=== PATIENT | male | born 1960 | race Caucasian/White ===

== ENCOUNTER 2021-02-03 15:22 | Outpatient (CLI) | payer OTHER, SELFPAY | END 2021-02-03 15:23 | disposition home or self-care (01) | LOC: ANHCOVIDVC 15:23 | PROVIDERS: PCP Urology | DX: Z23 Encounter for immunization (principal) | CPT/HCPCS: 0001A; 91300 ==

== ENCOUNTER 2021-02-24 15:32 | Outpatient (CLI) | payer OTHER, SELFPAY | END 2021-02-24 15:33 | disposition home or self-care (01) | LOC: ANHCOVIDVC 15:32 | PROVIDERS: PCP Urology | DX: Z23 Encounter for immunization (principal) | CPT/HCPCS: 0002A; 91300 ==

== ENCOUNTER 2021-11-18 12:23 | Outpatient (CLI) | payer OTHER, SELFPAY ==
--- NOTE | ~2021-11-18 | CT_ITS ---
EXAMINATION: CT lung screening DATE: 11/18/2021 12:43 INDICATION: Personal history of nicotine dependence. TECHNIQUE: Computed tomography (CT) of the chest was performed without intravenous contrast. The dose -length product was 602.70 mGy-cm. Automated exposure control and iterative reconstruction technique were employed. COMPARISON: None FINDINGS: Heart size is normal. No significant pleural or pericardial effusion. No thoracic lymphaden opathy. The upper abdomen is unremarkable. There is a 4 mm lingular nodule. There is calcified granul claudia right lower lung. There is a 3 mm left lower lobe nodule, image 97. No focal airspace consolidati on. No pneumothorax. No acute osseous abnormality. Mild thoracic spondylosis. IMPRESSION: 1. Lung-RADS category 2: Benign appearance or behavior. Continue annual screening with noncontrast lo w-dose chest CT in 12 months. Reviewed, dictated and finalized at location B. [employer] IMPRESSION: 1. Lung-RADS category 2: Benign appearance or behavior. Continue annual screeni ng with noncontrast low-dose chest CT in 12 months.
== END 2021-11-18 12:24 | disposition home or self-care (01) ==
PROVIDERS: PCP Family Medicine; Visit Provider Physician Assistant
DX: Z12.2 Encounter for screening for malignant neoplasm of respiratory organs (principal); Z87.891 Personal history of nicotine dependence
CPT/HCPCS: 71271

== ENCOUNTER 2021-12-12 03:44 | Day surgery (SDC) | payer OTHER, SELFPAY ==
[2021-11-28 14:16] VITALS: BMI 45.7
[2021-12-12 06:22] VITALS: BP 149/96; PULSE 83; RESP 18; TEMP 37; O2SAT 98; BMI 46.2
[2021-12-12] MEDS: LACTATED RINGERS 1,000 ML 150 ML IV CONT (06:25)
--- NOTE | 2021-12-12 06:55 | WPDANESEPPF ---
Anes - Initial Pre Proc Eval Procedure: Operation Date: 12/12/21 07:30 Proposed Procedures p Screening Colonoscopy - Maged Figueroa MD Date/Time: 12/12/21 06:55 Surgeon: Maged Figueroa MD Pre Op Diagnosis: hx of colon polyps Patient Data Age: 60 Gender: M Height: 1.73 m Weight: 138 kg Last Vital Signs Temp 37.0 C 12/12/21 06:22 Pulse 83 12/12/21 06:22 Resp 18 12/12/21 06:22 BP 149/96 H 12/12/21 06:22 Pulse Ox 98 12/12/21 06:22 Allergies Allergy/AdvReac Type Severity Reaction Status Date / Time No Known Allergies Allergy Verified 12/12/21 06:19 Home Medications Medication Instructions Recorded Confirmed Type No Home Medications 10/30/21 12/12/21 History Patient hx anesthesia problems: none Family hx anesthesia problems: none Results Review: All pre-operative results and documents have been reviewed as part of the pre-operative evaluation. [facility] Past Medical History Medical History Low testosterone level in male Osteoarthritis of right knee Surgical History Surgical History H/O arthroscopy of right knee Dr. Baca 2010 History of ankle surgery left, 1997 Family History Family History Mother Depression Heart disease Hypertension Parkinson disease Father Skin cancer Alzheimer's dementia Sibling Heart disease Hypertension Father Family history of dementia Mother Family history of coronary artery disease Social History Social History Smoking packs per day: 1 Smoking cigarettes per day: 20.0 Years smoked: 40 Smoking pack-years: 40.00 Smoking status: Current every day smoker Tobacco type: cigarettes Second hand tobacco smoke exposure: No Alcohol intake: current Drinks per week: 2 Alcohol use details: seldom; socially Substance use: current Substance use type: marijuana Last use: 11/25/21 Living arrangements: with family Gender identity (if verbalized by the patient): Male Spiritual care concerns: No Anes - Eval Final PreProcedure Day of Procedure 12/12/21 06:55 Patient weight: morbidly obese Heart: regular rate and rhythm Lungs: decreased breath sounds Airway: Mallampati scale class II Neurological: alert and oriented Last oral intake: >/= 8 hours ASA classification: III Emergent: no Anesthetic plan: proceed Anesthesia type and monitoring: general GIVS and standard monitoring Results Review: All pre-operative results and documents have been reviewed as part of the pre-operative evaluation. Informed Consent: The patient's anesthetic plan and its attendant risks and benefits were discussed with the patient/family/POA. Questions were solicited and answers provided to the satisfaction of the patient/family/POA.
[2021-12-12] MEDS: SIMETHICONE ORAL SUSPENSION 20 MG/0.3 ML 30 ML BOTTLE 0.6 ML IRRIGATION (07:40)
--- NOTE | 2021-12-12 07:50 | WPDGICN ---
Assessment and Plan Assessment and plan (1) History of colon polyps: Code(s): Z86.010 - Personal history of colonic polyps Status: Acute Assessment and Plan: Patient has a history of adenomatous colon polyps in the past. Plan is for surveillance colonoscopies at 3-5 year intervals in the future. (2) Family history of colonic polyps: Code(s): Z83.71 - Family history of colonic polyps Status: Acute GI Consult Note Consult date/time: 12/12/21 07:50 HPI: Charlie Mclean is a 60 year old male Presents for screening colonoscopy. Patient has a history of colon polyps on previous colonoscopies in 2019 in 2010. Patient reports that his current weight appetite and bowel movements are normal. He denies abdominal pain. He has had no bleeding. Family history is significant his son had colon polyps. Review of Systems Review of Systems: All systems reviewed & are unremarkable except as noted in HPI and below PMFSH Past Medical History Medical History Low testosterone level in male Osteoarthritis of right knee Surgical History Surgical History H/O arthroscopy of right knee Dr. Baca 2010 History of ankle surgery left, 1997 Family History Family History Mother Depression Heart disease Hypertension Parkinson disease Father Skin cancer Alzheimer's dementia Sibling Heart disease Hypertension Father Family history of dementia Mother Family history of coronary artery disease Social History Social History Smoking packs per day: 1 Smoking cigarettes per day: 20.0 Years smoked: 40 Smoking pack-years: 40.00 Smoking status: Current every day smoker Tobacco type: cigarettes Second hand tobacco smoke exposure: No Alcohol intake: current Drinks per week: 2 Alcohol use details: seldom; socially Substance use: current Substance use type: marijuana Last use: 11/25/21 Living arrangements: with family Gender identity (if verbalized by the patient): Male Spiritual care concerns: No Meds Home Medications and Allergies Home Medications Medication Instructions Recorded Confirmed Type No Home Medications 10/30/21 12/12/21 History Allergies Allergy/AdvReac Type Severity Reaction Status Date / Time No Known Allergies Allergy Verified 12/12/21 06:19 Vital Signs Vital Signs - 24 hr 12/12/21 06:22 Temperature 98.6 F Pulse Rate 83 Respiratory Rate 18 Blood Pressure 149/96 H Pulse Oximetry 98 Exam Narrative: Physical exam reveals patient to be alert. Vital signs stable. HEENT exam is unremarkable. Patient is anicteric. Lungs are clear to auscultation and percussion. Heart is without murmur or extra sounds. Abdominal exam is obese. Bowel sounds are present soft nontender with no organomegaly. Digital external rectal exam is normal.
[2021-12-12 07:54] VITALS: BP 148/86; PULSE 67; RESP 16; O2SAT 99
[2021-12-12 08:04] VITALS: BP 166/102; PULSE 66; RESP 16; O2SAT 99
[2021-12-12 08:14] VITALS: BP 171/106; PULSE 64; RESP 17; O2SAT 100
== END 2021-12-12 08:24 | disposition home or self-care (01) ==
PROVIDERS: PCP Family Medicine; Visit Provider Internal Medicine Gastroenterology
PROC: 0DJD8ZZ Inspection of Lower Intestinal Tract, Via Natural or Artificial Opening Endoscopic (ICD-10-PCS; CPT 45378; principal; 2021-12-12 07:30)
DX: Z12.11 Encounter for screening for malignant neoplasm of colon (principal); D12.3 Benign neoplasm of transverse colon; K57.30 Diverticulosis of large intestine without perforation or abscess without bleeding; K64.8 Other hemorrhoids; Z83.71 Family history of colonic polyps; F17.210 Nicotine dependence, cigarettes, uncomplicated; F12.90 Cannabis use, unspecified, uncomplicated; E66.01 Morbid (severe) obesity due to excess calories; Z68.42 Body mass index [BMI] 45.0-49.9, adult
CPT/HCPCS: 45385; 88305; J2704; J7120

== ENCOUNTER 2022-04-05 14:09 | Emergency (ER) | payer OTHER, SELFPAY ==
[2022-04-05 14:34] VITALS: BP 127/63; PULSE 71; RESP 16; TEMP 37.4; O2SAT 98
--- NOTE | 2022-04-05 15:44 | ED.DENTAL ---
HPI - Dental/Oral General Chief complaint: Dental/Oral Stated complaint: jaw swelling Time Seen by Provider: 04/05/22 15:45 Source: patient, RN notes reviewed and old records reviewed Mode of arrival: ambulatory Limitations: no limitations History of Present Illness HPI Narrative: 61-year-old male who presents to [facility] care with complaints of jaw swelling to the right jaw region which started this morning around 9 AM. Patient states he noticed some swelling in his right posterior jaw, feels like there is a knot there, with no redness or acute pain. Patient denies any dental pain or any known cavities, does have numerous fillings on right side of his lower and upper molars. Patient does have noted palpable swelling to the right posterior face no noted parotid lesion or evidence of salivary gland obstruction. Patient has not taken anything [id number] for his symptoms Onset (ago): hour(s) (at 0900 this morning) Treatment prior to arrival: none Related Data Allergies Allergy/AdvReac Type Severity Reaction Status Date / Time No Known Allergies Allergy Verified 04/05/22 14:47 Review of Systems Review of Systems: CONSTITUTIONAL: Denies fever, chills, or sweats. EYES: Denies visual changes, redness, or discharge. ENT: Denies rhinorrhea, congestion, sore throat, or otalgia. Positive for right posterior jaw swelling CARDIOVASCULAR: Denies chest pain, palpitations, or edema. RESPIRATORY: Denies cough or dyspnea. GASTROINTESTINAL: Denies abdominal pain, nausea, vomiting, or diarrhea. GENITOURINARY: Denies dysuria or hematuria. SKIN: Denies rash or itching. MUSCULOSKELETAL: reports history of back pain, joint pain, or myalgia. NEUROLOGIC: Denies headache, numbness, or weakness. PSYCHIATRIC: Denies anxiety or depression. All systems reviewed & are unremarkable except as noted in HPI and below PMFSH Past Medical History Medical History (Updated 04/07/22 @ 10:03 by Angela Roberts NP) Arthritis Low testosterone level in male Osteoarthritis of right knee Surgical History Surgical History H/O arthroscopy of right knee Dr. Baca 2010 History of ankle surgery left, 1997 Family History Family History Mother Depression Heart disease Hypertension Parkinson disease Father Skin cancer Alzheimer's dementia Sibling Heart disease Hypertension Father Family history of dementia Mother Family history of coronary artery disease Social History Social History (Updated 04/07/22 @ 10:05 by Angela Roberts NP) Smoking packs per day: 1 Smoking cigarettes per day: 20.0 Years smoked: 40 Smoking pack-years: 40.00 Smoking status: Current every day smoker Tobacco type: cigarettes Second hand tobacco smoke exposure: No Additional smoking assessment comments: reports that he has decreased his tobacco use Alcohol intake: current Drinks per week: 2 Alcohol use details: seldom; socially Substance use: current Substance use type: marijuana Last use: 11/25/21 Living arrangements: with family Gender identity (if verbalized by the patient): Male Spiritual care concerns: No Comments At time of signature, agree with nursing past medical, surgical, social and family history. There is no relevant family history pertinent to the presenting complaint Exam Narrative: GENERAL: Well-appearing, well-nourished, obese, and in no acute distress. HEAD: Normocephalic, atraumatic. EYES: PERRLA and EOMI. ENT: Nares clear, no rhinorrhea or epistaxis. Mucous membranes moist. TMs normal with good light reflex throat pink with no lesions or exudates no tonsillar swelling, positive for right posterior jaw and facial swelling with no acute pain, no noted fractures of teeth or evidence of dental fractures, no noted evidence of parotid gland swelling, no tenderness along jaw line or under jaw ma
== END 2022-04-05 15:55 | disposition home or self-care (01) ==
PROVIDERS: Emergency Provider Registered Nurse; PCP Family Medicine
DX: R22.0 Localized swelling, mass and lump, head (principal); F17.210 Nicotine dependence, cigarettes, uncomplicated; M19.90 Unspecified osteoarthritis, unspecified site; M17.11 Unilateral primary osteoarthritis, right knee
CPT/HCPCS: 99213; G0463

== ENCOUNTER 2022-06-27 19:24 | Emergency (ER) | payer OTHER, SELFPAY ==
--- NOTE | ~2022-06-27 | CT_ITS ---
EXAMINATION: CT abdomen pelvis wo con DATE: 06/27/2022 21:20 INDICATION: left flank pain radiating into groin, N/V TECHNIQUE: Computed tomography (CT) of the abdomen and pelvis was performed without intravenous contr ast. Automated exposure control and iterative reconstruction technique were employed. The dose-length product was 1539.31 mGy-cm. COMPARISON: None. FINDINGS: Lower thorax: Unremarkable Liver: Steatosis and hepatomegaly Biliary/Gallbladder: Gallbladder is normal. No bile duct dilation. Pancreas: No mass or duct dilation. Spleen: Normal. Adrenals:No mass. Kidneys: Moderate left pelviectasis and caliectasis, with moderate surrounding perinephric stranding. 10 mm left UPJ stone. No suspicious mass in either kidney. No right stone or hydronephrosis. GI tract: No small or large bowel dilation. Appendix not visualized. Mesentery/Peritoneum: No ascites, mass, or free air. Retroperitoneum: No mass. Pelvis: Bladder is mostly decompressed. Prostatic calcifications. No distal collecting system stones. . Soft Tissues: Soft tissues and body wall unremarkable. Bones: No acute osseous finding. IMPRESSION: 10 mm left UPJ stone causing moderate obstructive uropathy. Reviewed, dictated and finalized at location K.
[2022-06-27 19:42] VITALS: BP 149/62; PULSE 78; RESP 18; TEMP 36.7; O2SAT 99
--- NOTE | 2022-06-27 21:17 | ED.MALEGU ---
HPI - Male Genitourinary General Chief complaint: Urogenital-Male Stated complaint: flank pain Time Seen by Provider: 06/27/22 20:57 History of Present Illness HPI Narrative: 61-year-old male presents to the emergency room for evaluation of left flank pain. Patient states pain began earlier today and radiates into his left groin. Patient states within the last couple of hours he has become nauseated. No history of kidney stones. Patient states he is having trouble finding a comfortable position. Denies dysuria. Related Data Allergies Allergy/AdvReac Type Severity Reaction Status Date / Time No Known Allergies Allergy Verified 04/05/22 14:47 Review of Systems Review of Systems: CONSTITUTIONAL: Denies fever, chills, or sweats. EYES: Denies visual changes, redness, or discharge. ENT: Denies rhinorrhea, congestion, sore throat, or otalgia. CARDIOVASCULAR: Denies chest pain, palpitations, or edema. RESPIRATORY: Denies cough or dyspnea. GASTROINTESTINAL: Reports left flank pain GENITOURINARY: Denies dysuria or hematuria. SKIN: Denies rash or itching. MUSCULOSKELETAL: Denies back pain, joint pain, or myalgia. NEUROLOGIC: Denies headache, numbness, dizziness, or weakness. PSYCHIATRIC: Denies anxiety or depression. [facility] Past Medical History Medical History Arthritis Low testosterone level in male Osteoarthritis of right knee Surgical History Surgical History H/O arthroscopy of right knee Dr. Baca 2010 History of ankle surgery left, 1997 Family History Family History Mother Depression Heart disease Hypertension Parkinson disease Father Skin cancer Alzheimer's dementia Sibling Heart disease Hypertension Father Family history of dementia Mother Family history of coronary artery disease Social History Social History Smoking packs per day: 1 Smoking cigarettes per day: 20.0 Years smoked: 40 Smoking pack-years: 40.00 Smoking status: Current every day smoker Tobacco type: cigarettes Second hand tobacco smoke exposure: No Additional smoking assessment comments: reports that he has decreased his tobacco use Alcohol intake: current Drinks per week: 2 Alcohol use details: seldom; socially Substance use: current Substance use type: marijuana Last use: 11/25/21 Gender identity (if verbalized by the patient): Male Spiritual care concerns: No Exam Narrative: GENERAL: Well-appearing, well-nourished, no physical limitations, and in no acute distress. HEAD: Normocephalic, atraumatic. EYES: Conjunctivae normal, PERRLA and EOMI. CHEST: Clear to auscultation. No respiratory distress. No wheezes rales or rhonchi. No tenderness. HEART: Regular rate and rhythm. No murmur heard. Normal peripheral pulses. ABDOMEN: Soft, left lower quadrant tenderness, nondistended, normal active bowel sounds. BACK: No CVA tenderness; lower left lumbar tenderness in the paraspinal muscles EXTREMITIES: Normal range of motion. No edema. No clubbing or cyanosis SKIN: Warm, dry, no rash. No noted wounds NEURO: No focal deficits. Alert and oriented x3. MAEW. CN's II-XI intact bilaterally, normal gait PSYCH: Cooperative. Normal mood and affect. Course Vital Signs Vital signs: Vital Signs Temperature 36.7 C 06/27/22 19:42 Pulse Rate 78 06/27/22 19:42 Respiratory Rate 18 06/27/22 19:42 Blood Pressure 149/62 H 06/27/22 19:42 Pulse Oximetry 99 06/27/22 19:42 Oxygen Delivery Room Air 06/27/22 19:42 Temperature 36.7 C 06/27/22 19:42 Pulse Rate 78 06/27/22 19:42 Respiratory Rate 18 06/27/22 19:42 Blood Pressure 149/62 H 06/27/22 19:42 Pulse Oximetry 99 06/27/22 19:42 Oxygen Delivery Room Air 06/27/22 19:42 MDM - Male Genitouri
[2022-06-27] MEDS: KETOROLAC 30 MG/ML VIAL (*BKC) IV PUSH (21:47)
[2022-06-27] MEDS: SODIUM CHLORIDE 0.9% IV 1,000 ML 999 ML IV CONT (21:49)
[2022-06-27] MEDS: ONDANSETRON INJ 4 MG/2 ML VIAL IV PUSH (21:49)
[2022-06-27 22:07] LABS: Basophils Absolute Auto 0.1 K/mm3 (0.0-0.1); Basophils Percent Auto 0.5 % (0.2-1.2); Eosinophils Absolute Auto 0.1 K/mm3 (0-0.3); Eosinophils Percent Auto 0.5 % (0-4.4); Hematocrit 47.1 % (42.0-52.0); Hemoglobin 15.4 g/dL (14.0-18.0); Immature Granulocyte Absolute 0.07 K/mm3 (0.00-0.031); Immature Granulocyte Percent A 0.5 % (0-0.5); Lymphocytes Absolute Auto 1.42 K/mm3 (0.9-3.2); Lymphocytes Percent Auto 9.6 % (18.3-44.2); Mean Corpuscular HGB Conc 32.7 g/dl (32-36); Mean Corpuscular Hemoglobin 28.5 pg (26-34); Mean Corpuscular Volume 87.1 fl (80-100); Mean Platelet Volume 10.8 fl (7.4-10.4); Monocytes Absolute Auto 1.2 K/mm3 (0.1-0.6); Monocytes Percent Auto 8.1 % (2.6-8.5); Neutrophils Absolute Auto 11.9 K/mm3 (1.3-6.7); Neutrophils Percent Auto 80.8 % (45.5-73.1); Platelet Count Result 275 k/mm3 (150-375); Red Blood Count 5.41 M/mm3 (4.6-6.20); Red Cell Distribution Width 13.7 % (11.5-14.5); White Blood Count 14.8 K/mm3 (4.5-10.0)
[2022-06-27 22:08] LABS: Appearance Urine Clear (Clear); Bilirubin Urine Negative (Negative); Blood Urine 1+ (Negative); Color Urine Yellow (Yellow); Glucose Urine UA Negative (Negative); Ketones Urine Negative (Negative); Leukocyte Esterase Ur Negative LEU/UL (Negative); Nitrate Urine Negative (Negative); Protein Urine Negative (Negative); Specific Grav Ur 1.025 (1.001-1.035); Urobilinogen Urine 0.2 mg/dL (<2.0); pH Urine 5.5 (5.0-9.0)
[2022-06-27 22:10] LABS: Alanine Aminotransferase 30 U/L (6-50); Albumin Level 4.5 g/dL (3.5-5.1); Alkaline Phosphatase 67 U/L (38-126); Anion Gap 10 mmol/L (8-16); Aspartate Amino Transferase 30 U/L (17-59); Bilirubin,Total 0.4 mg/dL (0.2-1.3); Blood Urea Nitrogen 22 mg/dL (9-20); Calcium 9.7 mg/dL (8.4-10.2); Carbon Dioxide 24 mmol/L (22-30); Chloride 107 mmol/L (98-107); Estimated CRCL calculation 67 ml/min; Estimated Glomerular Filt Rate 51; Glucose 155 mg/dL (65-110); Potassium 4.2 mmol/L (3.4-5.0); Sodium 141 mmol/L (137-145)
[2022-06-27 22:17] LABS: Add Urine Microscopic? YES
[2022-06-27 22:19] LABS: WBC Urine None seen /hpf (0-3)
[2022-06-27 22:49] VITALS: BP 154/75; PULSE 74; RESP 18; TEMP 36.7; O2SAT 95
== END 2022-06-27 22:50 | disposition home or self-care (01) ==
PROVIDERS: Emergency Provider Nurse Practitioner Family; PCP Family Medicine
DX: N20.0 Calculus of kidney (principal); M19.90 Unspecified osteoarthritis, unspecified site; M17.11 Unilateral primary osteoarthritis, right knee; F17.210 Nicotine dependence, cigarettes, uncomplicated
CPT/HCPCS: 36415; 74176; 80053; 81001; 85025; 96361; 96374; 96375; 99284; J1885; J2405; J7030

== ENCOUNTER 2022-07-01 11:27 | Outpatient (CLI) | payer OTHER, SELFPAY ==
--- NOTE | ~2022-07-01 | XR_ITS ---
EXAM: XR abdomen/kub 1V DATE: 07/01/2022 11:46 HISTORY: LEFT URETERAL STONE FOLLOW UP . COMPARISON: CT abdomen and pelvis 06/27/2022. FINDINGS: Clear lung bases. Normal bowel gas pattern. No organomegaly. 9 mm left UPJ calcification. Pelvic phleboliths. Regional bones and soft tissues normal for age. IMPRESSION: Stable left UPJ stone. Reviewed, dictated and finalized at location K. IMPRESSION: Stable left UPJ stone.
== END 2022-07-01 11:28 | disposition home or self-care (01) ==
PROVIDERS: PCP Family Medicine; Visit Provider Urology
DX: N20.1 Calculus of ureter (principal)
CPT/HCPCS: 74018

== ENCOUNTER 2022-07-03 02:09 | Day surgery (SDC) | payer OTHER, SELFPAY ==
[2022-07-02 11:05] VITALS: BMI 45.7
--- NOTE | 2022-07-02 11:16 | PC.NURSE ---
Report to the Outpatient Waiting Room, entrance under the green pavilion located off [facility], at time __0730 on date __07/03/22 . OR Time: __929 . Time changes happen often and if your time is changed the preop area will call you the afternoon before. - You and your visitor will be asked to self-screen and do not enter if you have any COVID symptoms. - Only one visitor and NO children visitors are allowed at this time. - The patient visitor is requested to leave or wait in car when not with patient due to restrictions. - A mask is required within the hospital. Patients may have clear liquids (water, carbonated beverages, clear teas, apple juice) until 3 hours prior to surgery (0630 AM) with a maximum of 20 ounces. - No food from midnight until time of surgery - Infants may have breast milk until 4 hours before surgery, infant formula 6 hours prior to surgery. - Children will be allowed to drink immediately following surgery. If applicable, please bring a bottle or sippy cup to assist with drinking. Juice, water, soda, and popsicles are readily available. For infants on formula, please bring formula the day of surgery. Pacifiers are allowed. Take the following medications with a SIP of water the morning of surgery: PAIN PILL IF NEEDED Medications to discontinue per physician N/A Date to take last dose Please no make-up, nail welsh, hairspray, perfume, deodorant, or body powder the day of surgery. No jewelry (including any body piercings) or valuables the day of surgery, leave them at home. Please take a shower or bath the night before, or the morning of, surgery with an antibacterial soap. Wear comfortable, loose fitting clothing. Children are encouraged to wear pajamas. - Jewelry must be removed prior to entering the operating room. Rings and piercings that are not removed may be cut off. - The hospital will not accept responsibility for valuables. - Please leave all valuables, including medications, at home the day of surgery. If you are going home after surgery, a licensed powder truck driver must drive you home. - NO public transportation without another adult. - We recommend that an adult stay with you for 24 hours following discharge. - We also recommend that you do not drive, make important decision, drink alcoholic beverages, or take any drugs that were not prescribed by your health care provider for at least 24 hours after your discharge time. For Pediatric surgeries, we recommend two adults accompany the child home (only one inside the building at this time). Follow any additional instructions given to you from your surgeon. If you or anyone in your household have experienced Covid symptoms in the past week, please notify your surgeon or the nurse liaison at the phone number below for possible testing. Telephone instructions given to ___PT and asked if any additional questions and then verbalized understanding. Patient advised to call surgeon office or pre surgery nurse liaison [phone] if any additional questions.
--- NOTE | 2022-07-02 11:50 | PM.HPGS ---
History of Present Illness History of Present Illness Consent: Risks, benefits, and alternatives have been discussed and questions answered. Patient agrees to proceed with procedure. Chief complaint: left ureteral stone Narrative: Charlie Mclean is a 61 year old male who sees Dr. Hall on a regular basis for erectile dysfunction and hypogonadism. Recently developed left flank pain imaging demonstrated an obstructing 10 mm left proximal ureteral calculus. After discussions including endoscopic extraction verses ESWL he has elected for the latter. He is aware of the risk of this procedure including, but not limited to, adverse cardiopulmonary events, persistent stone fragments that may require additional intervention, perinephric hematoma and hematuria. Review of Systems Cardiovascular: Cardiovascular: Denies chest pain, Denies lightheadedness, Denies palpitations and Denies dyspnea Respiratory: Respiratory: Denies dyspnea Gastrointestinal: Gastrointestinal: Denies diarrhea, Denies nausea and Denies vomiting Genitourinary: Genitourinary: Denies hematuria and Denies dysuria Endocrine: Endocrine: Denies palpitations PMFSH Past Medical History Medical History Arthritis Low testosterone level in male Osteoarthritis of right knee Surgical History Surgical History H/O arthroscopy of right knee Dr. Baca 2010 History of ankle surgery left, 1997 Family History Family History Mother Depression Heart disease Hypertension Parkinson disease Father Skin cancer Alzheimer's dementia Sibling Heart disease Hypertension Father Family history of dementia Mother Family history of coronary artery disease Social History Social History Smoking packs per day: 1 Smoking cigarettes per day: 20.0 Years smoked: 40 Smoking pack-years: 40.00 Smoking status: Current every day smoker Tobacco type: cigarettes Second hand tobacco smoke exposure: Yes Additional smoking assessment comments: reports that he has decreased his tobacco use Alcohol intake: current Drinks per week: 2 Alcohol use details: seldom; socially Substance use: current Substance use type: marijuana Other substance usage details: RECEARATIONAL 1-2X MONTH Last use: END May Living arrangements: with family Gender identity (if verbalized by the patient): Male Spiritual care concerns: No Meds Home Medications and Allergies Home Medications Medication Instructions Recorded Confirmed Type hydrocodone 5 mg-acetaminophen 325 1 tablet PO Q8H PRN pain #20 tabs 06/27/22 07/02/22 Rx mg tablet ondansetron 4 mg disintegrating 4 mg PO Q8H PRN Nausea 07/02/22 07/02/22 History tablet tamsulosin 0.4 mg capsule (Flomax) 0.4 mg PO HS 07/02/22 07/02/22 History Allergies Allergy/AdvReac Type Severity Reaction Status Date / Time No Known Allergies Allergy Verified 07/02/22 11:02 Exam Const: General: no acute distress Resp: Effort & Inspection: normal respiratory effort GI: Inspection: non-distended GI Palp: No abdominal tenderness and No Guarding due to palpation present (GI) Auscultation: normal bowel sounds
--- NOTE | 2022-07-02 11:55 | PM.HPGS ---
History of Present Illness History of Present Illness Consent: Risks, benefits, and alternatives have been discussed and questions answered. Patient agrees to proceed with procedure. Chief complaint: left ureteral stone Narrative: Charlie Mclean is a 61 year old male Who is followed by Dr. Hall for hypogonadism and erectile dysfunction. He recently developed left flank pain imaging demonstrates the in obstructing 10 mm left proximal ureteral stone. After discussion of options he elects to proceed with cystoscopy with possible left ureteral stent placement and right ESWL. He is aware of the risk of this procedure including, but not limited to, adverse cardiopulmonary events, persistent stone fragments that may require additional intervention, perinephric hematoma and hematuria. Review of Systems Cardiovascular: Cardiovascular: Denies chest pain, Denies lightheadedness, Denies palpitations and Denies dyspnea Respiratory: Respiratory: Denies dyspnea Gastrointestinal: Gastrointestinal: Denies diarrhea, Denies nausea and Denies vomiting Genitourinary: Genitourinary: Denies hematuria and Denies dysuria Endocrine: Endocrine: Denies palpitations [facility], [facility] Past Medical History Medical History Arthritis Low testosterone level in male Osteoarthritis of right knee Surgical History Surgical History H/O arthroscopy of right knee Dr. Baca 2010 History of ankle surgery left, 1997 Family History Family History Mother Depression Heart disease Hypertension Parkinson disease Father Skin cancer Alzheimer's dementia Sibling Heart disease Hypertension Father Family history of dementia Mother Family history of coronary artery disease Social History Social History Smoking packs per day: 1 Smoking cigarettes per day: 20.0 Years smoked: 40 Smoking pack-years: 40.00 Smoking status: Current every day smoker Tobacco type: cigarettes Second hand tobacco smoke exposure: Yes Additional smoking assessment comments: reports that he has decreased his tobacco use Alcohol intake: current Drinks per week: 2 Alcohol use details: seldom; socially Substance use: current Substance use type: marijuana Other substance usage details: RECEARATIONAL 1-2X MONTH Last use: END May Living arrangements: with family Gender identity (if verbalized by the patient): Male Spiritual care concerns: No Meds Home Medications and Allergies Home Medications Medication Instructions Recorded Confirmed Type hydrocodone 5 mg-acetaminophen 325 1 tablet PO Q8H PRN pain #20 tabs 06/27/22 07/02/22 Rx mg tablet ondansetron 4 mg disintegrating 4 mg PO Q8H PRN Nausea 07/02/22 07/02/22 History tablet tamsulosin 0.4 mg capsule (Flomax) 0.4 mg PO HS 07/02/22 07/02/22 History Allergies Allergy/AdvReac Type Severity Reaction Status Date / Time No Known Allergies Allergy Verified 07/02/22 11:02 Exam Const: General: no acute distress Resp: Effort & Inspection: normal respiratory effort GI: Inspection: non-distended GI Palp: No abdominal tenderness and No Guarding due to palpation present (GI) Auscultation: normal bowel sounds Assessment and Plan Assessment and plan (1) Left ureteral stone: Code(s): N20.1 - Calculus of ureter Status: Acute Assessment and Plan: Left ESWL with possible cystoscopy in left ureteral stent placement
[2022-07-03] VITALS (8 sets, daily range): BP systolic 112–152; BP diastolic 59–77; PULSE 68–78; RESP 14–18; TEMP 36.3–37.5; O2SAT 94–99
--- NOTE | ~2022-07-03 | XR_ITS ---
EXAMINATION: XR abdomen/kub 1V DATE: 07/03/2022 07:30 INDICATION: Kidney stone. TECHNIQUE: A supine view of the abdomen on 2 radiographs was obtained. COMPARISON: CT abdomen and pelvis 06/27/2022 FINDINGS: There are no dilated loops of bowel. There is a 10 x 7 mm stone in proximal left ureter. Th ere is a phlebolith in left pelvis. IMPRESSION: 1. Stone in proximal left ureter. Reviewed, dictated and finalized at location A.
--- NOTE | 2022-07-03 07:03 | WPDHPUPDATE1 ---
History and Physical Update Update Date/Time: 07/03/22 07:03 History and Physical has been reviewed, including an updated exam of the patient. There are NO changes in the patient's condition. Risks, benefits, and alternatives have been discussed and questions answered. Patient agrees to proceed with procedure.
[2022-07-03] MEDS: LACTATED RINGERS 1,000 ML 30 ML IV CONT (08:00)
[2022-07-03 08:21] LABS: Prothrombin Time 13.1 Seconds (11.1-14.7)
[2022-07-03 08:22] LABS: Partial Thromboplastin Time 28.9 SECONDS (22.3-36.8)
--- NOTE | 2022-07-03 08:33 | WPDANESEPPF ---
Anes - Initial Pre Proc Eval Procedure: Operation Date: 07/03/22 09:30 Proposed Procedures p Left Ureteral Extracorporeal Shock Wave Lithotripsy, - Chuck Acevedo MD s Possible Cystoscopy, Possible Left Stent Placement - Chuck Acevedo MD Date/Time: 07/03/22 08:33 Surgeon: Chuck Acevedo MD Pre Op Diagnosis: left ureteral stone Patient Data Age: 61 Gender: M Height: 1.73 m Weight: 140.7 kg Last Vital Signs Temp 37.5 C 07/03/22 08:02 Pulse 78 07/03/22 08:02 Resp 16 07/03/22 08:02 BP 152/77 H 07/03/22 08:02 Pulse Ox 99 07/03/22 08:02 O2 Del Method Room Air 07/03/22 08:02 Allergies Allergy/AdvReac Type Severity Reaction Status Date / Time No Known Allergies Allergy Verified 07/03/22 07:35 Home Medications Medication Instructions Recorded Confirmed Type hydrocodone 5 mg-acetaminophen 325 1 tablet PO Q8H PRN pain #20 tabs 06/27/22 07/03/22 Rx mg tablet ondansetron 4 mg disintegrating 4 mg PO Q8H PRN Nausea 07/02/22 07/03/22 History tablet tamsulosin 0.4 mg capsule (Flomax) 0.4 mg PO HS 07/02/22 07/03/22 History Laboratory Tests 07/03/22 07:56 PT 13.1 Seconds Seconds (11.1-14.7) INR 1.0 APTT 28.9 SECONDS SECONDS (22.3-36.8) Patient hx anesthesia problems: none Family hx anesthesia problems: none Results Review: All pre-operative results and documents have been reviewed as part of the pre-operative evaluation. [facility] Past Medical History Medical History (Updated 07/03/22 @ 08:33 by Zafar Mendoza MD) Arthritis Low testosterone level in male Morbid obesity Osteoarthritis of right knee Surgical History Surgical History H/O arthroscopy of right knee Dr. Baca 2010 History of ankle surgery left, 1997 Family History Family History Mother Depression Heart disease Hypertension Parkinson disease Father Skin cancer Alzheimer's dementia Sibling Heart disease Hypertension Father Family history of dementia Mother Family history of coronary artery disease Social History Social History Smoking packs per day: 1 Smoking cigarettes per day: 20.0 Years smoked: 40 Smoking pack-years: 40.00 Smoking status: Current every day smoker Tobacco type: cigarettes Second hand tobacco smoke exposure: Yes Additional smoking assessment comments: reports that he has decreased his tobacco use Alcohol intake: current Drinks per week: 2 Alcohol use details: seldom; socially Substance use: current Substance use type: marijuana Other substance usage details: RECEARATIONAL 1-2X MONTH Last use: END May Living arrangements: with family Gender identity (if verbalized by the patient): Male Spiritual care concerns: No Anes - Eval Final PreProcedure Day of Procedure 07/03/22 08:33 Patient weight: morbidly obese Heart: regular rate and rhythm Lungs: clear to auscultation Airway: Mallampati scale class II Neurological: alert and oriented Last oral intake: >/= 8 hours ASA classification: III Emergent: no Anesthetic plan: proceed Anesthesia type and monitoring: general LMA and standard monitoring Results Review: All pre-operative results and documents have been reviewed as part of the pre-operative evaluation. Informed Consent: The patient's anesthetic plan and its attendant risks and benefits were discussed with the patient/family/POA. Questions were solicited and answers provided to the satisfaction of the patient/family/POA.
--- NOTE | 2022-07-03 09:27 | SUR.PREOP ---
Discussed delay with patient and . Voiced understanding.
[2022-07-03] MEDS: ceFAZolin 3 GM/D5W 100 ML 100 ML IVPB (09:52)
--- NOTE | 2022-07-03 10:26 | W.PM.PROC2 ---
Procedure Note - Detailed Date of Procedure 07/03/22 Pre-op Diagnosis Left ureteral stone Post-op Diagnosis Same Procedure Performed Cystoscopy, left ureteral stent placement and left ESWL Surgeon Chuck Acevedo MD Description of Procedure The patient was brought to the operative suite where he was placed in the supine position on the Dornier lithotripter table. Flexible cystoscopy was undertaken with a 16F flexible cystoscopy. There were no urethral strictures. The prostatic urethra estimated length was 2.0cm. There was no obstruction of the prostatic urethra with median lobe enlargement. The bladder mucosa was normal and there was a single, orthotopic ureteral orifice bilaterally. A 0.035 glidewire was advanced into the left renal pelvis under fluoroscopy. A 4.8F J-J ureteral stent was positioned with the proximal coil in the renal pelvis and the distal coil in the bladder. The patient was then repositioned in the supine position with the focal point of the lithotriptor on a 9-10mm left UPJ calculus. A total of 2500 shocks were delivered at a power setting of 4. There appeared to be good fragmentation of the stone. The patient tolerated the procedure well and was taken to the recovery room in good condition. Drains Yes Packing No Pathology Yes Complications No immediate complications Condition Stable
== END 2022-07-03 12:35 | disposition home or self-care (01) ==
PROVIDERS: PCP Family Medicine; Visit Provider Urology
PROC: (CPT 50590; principal; 2022-07-03 09:30)
PROC: (CPT 52352; 2022-07-03 09:30)
DX: N20.1 Calculus of ureter (principal); R10.9 Unspecified abdominal pain; M19.90 Unspecified osteoarthritis, unspecified site; F17.210 Nicotine dependence, cigarettes, uncomplicated; F12.90 Cannabis use, unspecified, uncomplicated; E66.01 Morbid (severe) obesity due to excess calories; Z68.42 Body mass index [BMI] 45.0-49.9, adult
CPT/HCPCS: 52332; 50590; 36415; 74018; 85610; 85730; A9270; C1769; C2617; J0690; J1100; J2250; J2405; J2704; J3010; J7120

== ENCOUNTER 2022-07-10 07:23 | Outpatient (CLI) | payer OTHER, SELFPAY ==
--- NOTE | ~2022-07-10 | XR_ITS ---
EXAMINATION: XR abdomen/kub 1V INDICATION: Left ureteral stone one week post lithotripsy TECHNIQUE: Supine views of the abdomen were obtained on 2 radiographs. COMPARISON: 07/03/2022 FINDINGS: A left internal ureteral stent is in expected position. Fragments of the previously describ ed left proximal ureteral stone are now present in the left kidney lower pole. No stone fragments are identified along the internal ureteral stent. There is a phlebolith of the left pelvis. The bowel ga s pattern is normal. IMPRESSION: 1. Left internal ureteral stent in expected position. Stone fragments from lithotripsy now present in the left kidney lower pole. Reviewed, dictated and finalized at location B. IMPRESSION: 1. Left internal ureteral stent in expected position. Stone fragments from lith otripsy now present in the left kidney lower pole.
== END 2022-07-10 07:24 | disposition home or self-care (01) ==
PROVIDERS: PCP Family Medicine; Visit Provider Urology
DX: N20.1 Calculus of ureter (principal)
CPT/HCPCS: 74018

== ENCOUNTER 2022-07-22 08:44 | Outpatient (CLI) | payer OTHER, SELFPAY ==
[2022-07-22 09:43] LABS: Prothrombin Time 12.7 Seconds (11.1-14.7)
[2022-07-22 09:45] LABS: Partial Thromboplastin Time 30.2 SECONDS (22.3-36.8)
== END 2022-07-22 08:45 | disposition home or self-care (01) ==
LOC: ANHSURGERY 08:46
PROVIDERS: PCP Family Medicine; Visit Provider Urology
DX: Z01.812 Encounter for preprocedural laboratory examination (principal); N20.1 Calculus of ureter
CPT/HCPCS: 36415; 85610; 85730

== ENCOUNTER 2022-07-24 00:55 | Day surgery (SDC) | payer OTHER, SELFPAY ==
[2022-07-17 12:11] VITALS: BMI 47.1
--- NOTE | 2022-07-17 12:19 | PC.NURSE ---
Report to the Outpatient Waiting Room, entrance under the green pavilion located off [facility], at time 6:30 on date 07/24/22. OR Time: 8:30. Time changes happen often and if your time is changed the preop area will call you the afternoon before. - You and your visitor will be asked to self-screen and do not enter if you have any COVID symptoms. - Only one visitor and NO children visitors are allowed at this time. - The patient visitor is requested to leave or wait in car when not with patient due to restrictions. - A mask is required within the hospital. Patients may have clear liquids (water, carbonated beverages, clear teas, apple juice) until 3 hours prior to surgery (5:30) with a maximum of 20 ounces. - No food from midnight until time of surgery Take the following medications with a SIP of water the morning of surgery: N/A Medications to discontinue per physician: N/A Date to take last dose: N/A Please no make-up, nail st helenian, hairspray, perfume, deodorant, or body powder the day of surgery. No jewelry (including any body piercings) or valuables the day of surgery, leave them at home. Please take a shower or bath the night before, or the morning of, surgery with an antibacterial soap. Wear comfortable, loose fitting clothing. - Jewelry must be removed prior to entering the operating room. Rings and piercings that are not removed may be cut off. - The hospital will not accept responsibility for valuables. - Please leave all valuables, including medications, at home the day of surgery. If you are going home after surgery, a licensed pick up driver must drive you home. - NO public transportation without another adult. - We recommend that an adult stay with you for 24 hours following discharge. - We also recommend that you do not drive, make important decision, drink alcoholic beverages, or take any drugs that were not prescribed by your health care provider for at least 24 hours after your discharge time. Follow any additional instructions given to you from your surgeon. If you or anyone in your household have experienced Covid symptoms in the past week, please notify your surgeon or the nurse liaison at the phone number below for possible testing. Telephone instructions given to PT - GREG GUIDO and asked if any additional questions and then verbalized understanding. Patient advised to call surgeon office or pre surgery nurse liaison [phone] if any additional questions.
--- NOTE | 2022-07-23 15:29 | WPDANESEPPF ---
Anes - Initial Pre Proc Eval Procedure: Operation Date: 07/24/22 08:30 Proposed Procedures p Left Extracorporeal Shock Wave Lithotripsy - Amor Cardoso MD Date/Time: 07/23/22 15:29 Surgeon: Amor Cardoso MD Pre Op Diagnosis: Lt Ureteral Stone Patient Data Age: 61 Gender: M Height: 1.73 m Weight: 140.7 kg Allergies Allergy/AdvReac Type Severity Reaction Status Date / Time No Known Allergies Allergy Verified 07/17/22 12:11 Home Medications Medication Instructions Recorded Confirmed Type tamsulosin 0.4 mg capsule (Flomax) 0.4 mg PO HS 07/02/22 07/17/22 History Patient hx anesthesia problems: none Family hx anesthesia problems: none Results Review: All pre-operative results and documents have been reviewed as part of the pre-operative evaluation. [facility] Past Medical History Medical History (Updated 07/03/22 @ 08:33 by Zafar Mendoza MD) Arthritis Low testosterone level in male Morbid obesity Osteoarthritis of right knee Surgical History Surgical History H/O arthroscopy of right knee Dr. Baca 2010 History of ankle surgery left, 1997 Family History Family History Mother Depression Heart disease Hypertension Parkinson disease Father Skin cancer Alzheimer's dementia Sibling Heart disease Hypertension Father Family history of dementia Mother Family history of coronary artery disease Social History Social History Smoking packs per day: 1 Smoking cigarettes per day: 20.0 Years smoked: 40 Smoking pack-years: 40.00 Smoking status: Current every day smoker Tobacco type: cigarettes Second hand tobacco smoke exposure: Yes Additional smoking assessment comments: reports that he has decreased his tobacco use Alcohol intake: current Drinks per week: 2 Alcohol use details: seldom; socially Substance use: current Substance use type: marijuana Other substance usage details: RECEARATIONAL 1-2X MONTH Last use: END May Living arrangements: with family Gender identity (if verbalized by the patient): Male Spiritual care concerns: No Anes - Eval Final PreProcedure Day of Procedure 07/23/22 15:29 Patient weight: morbidly obese Heart: regular rate and rhythm Lungs: clear to auscultation Airway: Mallampati scale class II Neurological: alert and oriented Last oral intake: >/= 8 hours ASA classification: III Emergent: no Anesthetic plan: proceed Anesthesia type and monitoring: general LMA and standard monitoring Results Review: All pre-operative results and documents have been reviewed as part of the pre-operative evaluation. Informed Consent: The patient's anesthetic plan and its attendant risks and benefits were discussed with the patient/family/POA. Questions were solicited and answers provided to the satisfaction of the patient/family/POA.
[2022-07-24] VITALS (7 sets, daily range): BP systolic 105–135; BP diastolic 66–88; PULSE 70–87; RESP 10–18; TEMP 36.4–37.1; O2SAT 97–100
--- NOTE | ~2022-07-24 | XR_ITS ---
XR abdomen/kub 1V 07/24/2022 07:01 Indication: Lithotripsy. Renal stones. Procedure: KUB Comparison: 07/10/2022 Findings: There are clustered stones in the lower pole of the left kidney. Left internal ureteral daniel nt in expected position. No definite ureteral stones. Moderate lumbar spondylosis. Mild osteoarthriti s of the hips. No acute osseous abnormality. Lung bases unremarkable. Impression: 1: Clustered stones in the lower pole of the left kidney. Left internal ureteral stent in expected po sition. Reviewed, dictated and finalized at location B. Impression: 1: Clustered stones in the lower pole of the left kidney. Left internal uretera l stent in expected position.
--- NOTE | 2022-07-24 07:26 | WPDHPUPDATE1 ---
History and Physical Update Update Date/Time: 07/24/22 07:26 History and Physical has been reviewed, including an updated exam of the patient. There are NO changes in the patient's condition. Risks, benefits, and alternatives have been discussed and questions answered. Patient agrees to proceed with procedure. Proceed with left renal eswl
[2022-07-24] MEDS: LACTATED RINGERS 1,000 ML 30 ML IV CONT (07:29)
[2022-07-24] MEDS: ceFAZolin 3 GM/D5W 100 ML 100 ML IVPB (08:25)
--- NOTE | 2022-07-24 08:51 | W.PM.PROC2 ---
Procedure Note - Detailed Date of Procedure 07/24/22 Pre-op Diagnosis Lt renal calculi Post-op Diagnosis Same Procedure Performed Lithotripsy of left renal calculi Surgeon Amor Cardoso MD Anesthesia General Description of Procedure Patient is taken to the operative suite correctly identified. Once anesthesia was obtained the stones were localized in both planes. Two thousand five hundred shocks were given to this collection of stones. Patient tolerated procedure well without any complications and was taken recovery stable condition. He will follow-up with Dr. Hall in 7-10 days with KUB Estimated Blood Loss 0 Drains Yes Packing No Pathology None sent Complications No immediate complications Condition Stable Disposition PACU
== END 2022-07-24 10:10 | disposition home or self-care (01) ==
PROVIDERS: PCP Family Medicine; Visit Provider Urology
PROC: (CPT 50590; principal; 2022-07-24 08:30)
DX: N20.0 Calculus of kidney (principal)
CPT/HCPCS: 50590; 36415; 74018; 85610; 85730; J0690; J1100; J2250; J2405; J2704; J3010; J7120

== ENCOUNTER 2022-08-05 09:49 | Outpatient (CLI) | payer OTHER, SELFPAY ==
--- NOTE | ~2022-08-05 | XR_ITS ---
EXAM: XR abdomen/kub 1V DATE: 08/05/2022 10:04 HISTORY: follow up of L URETERAL STONE . COMPARISON: 07/24/2022. CT abdomen and pelvis 06/27/2022 FINDINGS: Clear lung bases. Left ureteral stent, in good position. Left inferior pole calcifications represent summation artifact. Normal bowel gas pattern. No organomegaly. Pelvic phleboliths. Regiona l bones and soft tissues normal for age. IMPRESSION: No radiographic evidence of urolithiasis. Reviewed, dictated and finalized at location K.
== END 2022-08-05 09:50 | disposition home or self-care (01) ==
PROVIDERS: PCP Family Medicine; Visit Provider Urology
DX: N20.1 Calculus of ureter (principal)
CPT/HCPCS: 74018

== ENCOUNTER 2022-08-18 08:01 | Outpatient (CLI) | payer OTHER, SELFPAY ==
--- NOTE | ~2022-08-18 | CT_ITS ---
EXAMINATION: CT abdomen pelvis wo con DATE: 08/18/2022 08:20 INDICATION: Left kidney stone. TECHNIQUE: Computed tomography (CT) of the abdomen and pelvis was performed without intravenous contr ast. Automated exposure control and iterative reconstruction technique were employed. The dose-length product was 1243.61 mGy-cm. COMPARISON: CT abdomen and pelvis 06/27/2022 FINDINGS: The visualized portions of the lung bases demonstrate minimal atelectasis. No pleural effus ion. The heart size is normal. No pericardial effusion. There is diffuse hepatic steatosis. The gallb ladder, spleen, pancreas, adrenal glands, and right kidney are normal. There is a left internal urete ral stent in expected position. There is a 12 x 5 mm cluster of stones in left kidney lower pole. The re are 1 mm and 2 mm stones in left kidney that are separate from this cluster. There are no dilated loops of bowel. The appendix is normal. There are no pathologically enlarged lymph nodes. There is no free intraperitoneal fluid. There are chronic bilateral L5 pars defects. There is 5 mm anterolisthes is of L5 on S1. There is severe lower lumbar spondylosis. IMPRESSION: 1. Left kidney stones. Left internal ureteral stent in expected position. Reviewed, dictated and finalized at location A.
== END 2022-08-18 08:02 | disposition home or self-care (01) ==
PROVIDERS: PCP Family Medicine; Visit Provider Urology
DX: N20.1 Calculus of ureter (principal); N20.0 Calculus of kidney; Z96.0 Presence of urogenital implants
CPT/HCPCS: 74176

== ENCOUNTER 2022-11-24 09:12 | Outpatient (CLI) | payer OTHER, SELFPAY ==
--- NOTE | ~2022-11-24 | XR_ITS ---
EXAMINATION: XR abdomen/kub 1V INDICATION: Left ureteral stone TECHNIQUE: Supine views of the abdomen were obtained on three radiographs. COMPARISON: 08/05/2022 FINDINGS: The left internal ureteral stent has been removed. There is a 7 mm linear stone of the left kidney lower pole. A phlebolith is noted in the left pelvis. No stones are identified in the right k idney, along the expected location of the ureters, or in the urinary bladder. The visualized lung bas es are clear. The bowel gas pattern is unremarkable. There is severe lower lumbar spondylosis. IMPRESSION: 1. Left nephrolithiasis. Reviewed, dictated and finalized at location L. [employer] IMPRESSION: 1. Left nephrolithiasis.
== END 2022-11-24 09:13 | disposition home or self-care (01) ==
PROVIDERS: PCP Family Medicine; Visit Provider Urology
DX: N20.0 Calculus of kidney (principal)
CPT/HCPCS: 74018

== ENCOUNTER 2024-07-07 14:06 | Outpatient (CLI) | payer OTHER, SELFPAY ==
--- NOTE | ~2024-07-07 | CT_ITS ---
EXAMINATION: CT abdomen pelvis wo con DATE: 07/07/2024 14:35 INDICATION: Left ureteral stone TECHNIQUE: Computed tomography (CT) of the abdomen and pelvis was performed without intravenous contr ast. Automated exposure control and iterative reconstruction technique were employed. The dose-length product was 1298.92 mGy-cm. COMPARISON: 08/18/2022 FINDINGS: Lung bases are clear. Heart size is normal. No pericardial or pleural effusion. Diffuse hepatic steat osis. There are a few small pancreatic parenchymal calcification consistent with sequela of chronic p ancreatitis. Gallbladder, spleen, bilateral adrenal glands and right kidney are normal. 3 nonobstruct ing stones at the lower pole of the left kidney the 2 largest measuring 4 mm maximal diameter. No ure teral stones or hydronephrosis. Bladder is normal. Mild prostatomegaly measuring 4.1 x 3.6 cm. Bowels including the appendix are normal. No free intraperitoneal gas or fluid. No pathologically enlarged abdominal or pelvic lymphadenopathy. Moderate to severe lower lumbar spondylosis. 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 IMPRESSION: 1. Left nephrolithiasis. No ureteral stones or hydronephrosis. 2. Mild prostatomegaly. Reviewed, dictated and finalized at location B.
--- NOTE | ~2024-07-07 | XR_ITS ---
XR abdomen/kub 1V Ordering provider: Anuel Hall MD History: . left ureteral stone . Comparison: None. FINDINGS: BOWEL: Nonobstructive bowel gas pattern. ORGANOMEGALY: None. SIGNIFICANT PATHOLOGIC CALCIFICATIONS: Calcifications seen in the left side of the abdomen which may be kidney stones. OTHER: No free air is seen under the diaphragm. Degenerative changes of the spine. Bilateral sacroiliitis. IMPRESSION: NO ACUTE ABDOMINAL FINDINGS. Left Kidney stones. Reviewed, dictated and finalized at location A.
== END 2024-07-07 14:07 | disposition home or self-care (01) ==
LOC: ANHIMG 14:12
PROVIDERS: PCP Family Medicine; Visit Provider Urology
DX: N20.1 Calculus of ureter (principal)
CPT/HCPCS: 74018; 74176

== ENCOUNTER 2024-11-24 14:10 | Outpatient (CLI) | payer OTHER, SELFPAY ==
--- NOTE | ~2024-11-24 | CT_ITS ---
EXAMINATION:CT lung screening DATE: 11/24/2024 15:18 INDICATION: Tobacco use. Current smoker with 30 pack year history. TECHNIQUE: Computed tomography (CT) of the chest was performed without intravenous contrast. Automate d exposure control and iterative reconstruction technique were employed. The dose-length product (DLP ) was 521.89 mGy-cm. COMPARISON: Chest CT 11/18/2021 FINDINGS: The lungs demonstrate mild atelectasis. There is a stable 6 mm nodule in left major fissure . There are two 3 mm nodules in left lower lobe. No pleural effusion. The heart size is normal. No pe ricardial effusion. There is diffuse hepatic steatosis. There is mild thoracic spondylosis. IMPRESSION: 1. Lung-RADS category 2: Benign appearance or behavior. Continue annual screening with noncontrast lo w-dose chest CT in 12 months. Reviewed, dictated and finalized at location A. ELERS' AID WORKER IMPRESSION: 1. Lung-RADS category 2: Benign appearance or behavior. Continue annual screeni ng with noncontrast low-dose chest CT in 12 months.
--- OUTSIDE RECORDS SUMMARY | 2024-11-24 14:14 | XMS_ITS | Clinical Summary ---
Author Organization [facility] Address [address], [facility] [address] [place] [address] Phone Care Team Providers Care Nursing Agency Manager Name Role Phone Rosie Renner MD Primary Care Provi vero Rosie Renner MD Unavailable [phone] Social History Tobacco Use Types Packs/Day Years Used Date Smoking Tobacco: Never Assessed Sex and Gender Information Value Date Recorded Sex Assigned at Not on file Legal Sex Male 8:41 PM CDT Gender Identity Not on file Sexual Orientation Not on file Plan of Treatment Health Maintenance Due Date Last Done Comments Hepatitis C Virus (HCV) Screening 1960 TdaP Immunization 1960 Cologuard 12/30/2009 Immunochemical Fecal Occult Blood 12/30/2009 Pneumococcal Immunization (5 0+ years) (1 of 1 - PCV) 12/30/2009 Zoster Immunization (1 of 2) 12/30/2009 PSA Discussion 12/30/2014 Colonoscopy 12/05/2021 12/05/2018 Colorectal Cancer Screening 12/05/2021 Influenza Immunization (#1) 2024 SARS-COV-2 Immunization ( - season) 2024 Respiratory Syncytial Virus (RSV) Immunization (Adult) (1 - 1-dose 75+ series) 12/30/2034 12/05/2018 Hepatitis B Immunization Aged Out No longer eligible based on patient's age to complete this topic Meningococcal Immunization (ACWY) Aged Out No longer eligible based on patient's age to complete this topic Pneumococcal Immunization Combined Aged Out No longer eligible based on patient's age to complete this topic Rotavirus Immunization Aged Out No lo nger eligible based on patient's age to complete this topic Procedures Procedure Name Priority Date/Time Associated Diagnosis Comments COLONOSCOPY Routine 12/05/2018 from Last 3 Months or Most Recently Relevant to Health Maintenance Results * COLONOSCOPY (12/05/2018) Maged Lucas DO PROCEDURE/MINOR SURGICAL ORDERA BLES Final Result from Last 3 Months or Most Recently Relevant to Health Maintenance Insurance [facility] Care Teams Nursing Agency Manager Relationship Specialty Start Date End Date Rosie Renner MD [address] [place] [address] PCP - General Family Medicine 12/08/18 Rosie Renner MD [address] [place] [address] Family Medicine 12/08/18
--- OUTSIDE RECORDS SUMMARY | 2024-11-24 14:14 | XMS_ITS | Continuity of Care Document ---
Author Organization [facility] Address [address] [place] [address] Exec [address] [facility] [address] [place] [address] Phone Care Team Providers Care Textile Machine Operator Name Role Phone Kerr OD, Maged Unavailable Unavailable Advance Directives Directive Yes / No Effective Date File Name No Information Encounters Encounter Description Practice Location Reason(s) For Visit Diagnoses Date Provider Providers Copied on Encounter [facility], [address] [place] [address] [address], [place], [place], [id number], [place] tel:[phone] [facility] No Information 4-200 5 Kerr OD Maged. [address] , [address], [place], [address], [place]. tel:[phone] Family History Family Member Type Diagnosis Age At Onset No Information Payers Payer name Insurance type Covered libertarian ID Authoriza tion(s) [employer]link ALBIN LEE [id number] Social History Type Description Quantity Date Captured Comments Sex Male Smoking Status No Information Chief Complaint And Reason For Visit No Information Reason For Referral Reason For Referral No Information History Of Present Illness Encounter Date Complaint History Of Prese nt Illness No Information Functional Status Date Functional Assessmen t No Information Instructions Date Instruction Additional Infor mation No Information Assessments Type Assessment Date No Information Patient Care Teams Name Effective Dates (start - stop) Status Members No Information
== END 2024-11-24 14:11 | disposition home or self-care (01) ==
PROVIDERS: PCP Family Medicine; Visit Provider Student in an Organized Health Care Education/Training Program
DX: Z12.2 Encounter for screening for malignant neoplasm of respiratory organs (principal); Z87.891 Personal history of nicotine dependence
CPT/HCPCS: 71271

== ENCOUNTER 2024-12-05 08:55 | Outpatient (CLI) | payer OTHER, SELFPAY ==
--- OUTSIDE RECORDS SUMMARY | 2024-12-05 09:35 | XMS_ITS | Referral Summary ---
Author Organization [facility] Address [address] [place] [address] Care Team Providers Care Superintendent Communications Name Role Phone Marielos Carver MD Primary Care Provider [phone] Anuel Hall MD Unavailable [phone] Allergies No known active allergies Medications tamsulosin (FLOMAX) 0.4 mg extended release capsule Take 0.4 mg by mouth nightly Active Active Problems Problem Noted Date Diagnosed Date BALTAZAR (obstructive sleep apnea) 09/18/2022 Morbid obesity 09/18/2022 BPH (benign prostatic hyperplasia) 09/18/2022 Nephrolithiasis 09/18/2022 Social History Tobacco Use Types Packs/Day Years Used Date Smoking Tobacco: Every Day Cigarettes Tobacco Cessation:Ready to Q uit: No; Counseling Given: Not Answered AUDIT-C Answer Date Recorded Q1: How often do you have a drink containing alc ohol? Monthly or less 10/01/2022 Q2: How many drinks containi ng alcohol do you have on a typical day when you are drinking? 1 or 2 10/01/2022 Q3: How often do you have si x or more drinks on one occasion? Never 10/01/2022 Sex and Gender Information Value Date Recorded Sex Assigned at Not on file Legal Sex Male 9:10 AM LIGHT BULB TESTER Gender Identity Not on file Sexual Orientation Not on file Last Filed Vital Signs Vital Sign Reading Time Taken Comments Blood Pressure 146/72 10/01/2022 3:15 PM LIGHT BULB TESTER Pulse 77 10/01/2022 3:15 PM LIGHT BULB TESTER Temperature 36.3 C (97.3 F) 10/01/2022 2:45 PM LIGHT BULB TESTER Respiratory Rate 12 10/01/2022 3:15 PM LIGHT BULB TESTER Oxygen Saturation 95% 10/01/2022 3:15 PM LIGHT BULB TESTER Inhaled Oxygen Concentration - - Weight 140 kg (308 lb 10.3 oz) 10/01/2022 12:00 PM LIGHT BULB TESTER Height 175.3 cm (5' 9 ) 10/01/2022 12:00 PM LIGHT BULB TESTER Body Mass Index 45.58 10/01/2022 12:00 PM LIGHT BULB TESTER Plan of Treatment Not on file Medical Devices Implanted Type Area Repairer Shoe Sticks Device Identifier Shelf Expiration Date Model / Serial / Lot [employer] Lesli Contour Vl 6fr 22-30cm Large Inner Lumen Low Profile Bladder Maged Latex Free [id number] - Snone - [id number] Implanted:Qty: 1 on 10/01/2022 by Aneul Hall MD at [facility] Stent Left: Ureter [employer] Lesli 07/06/2025 [id number] 0 / NONE / [id number] Insurance [facility] Care Teams Superintendent Communications Relationship Specialty Start Date End Date Marielos Carver MD PCP - General Family Medicine 09/16/22 Anuel Hall MD [address] [facility] [address] [place] [address] Consulting Physician Urology 10/01/22
--- OUTSIDE RECORDS SUMMARY | 2024-12-05 09:35 | XMS_ITS | Continuity of Care Document ---
Author Organization [facility] Address [address] [place] [address] Exec utive [facility] [address] [place] [address] Phone Care Team Providers Care Engineering Secretary Name Role Phone Kerr OD, Maged Unavailable Unavailable Advance Directives Directive Yes / No Effective Date File Name No Information Encounters Encounter Description Practice Location Reason(s) For Visit Diagnoses Date Provider Providers Copied on Encounter [facility], [address] [place] [address] [address], [place], [place], [id number], [place] tel:[phone] [facility] No Information [phone] Kerr OD Maged. [address] , [address], [place], [address], [place]. tel:[phone] Family History Family Member Type Diagnosis Age At Onset No Information Payers Payer name Insurance type Covered republican ID Authoriza tion(s) [employer]link ALBIN LEE [id number] Social History Type Description Quantity Date Captured [...]
--- OUTSIDE RECORDS SUMMARY | 2024-12-05 09:35 | XMS_ITS | Clinical Summary ---
Author Organization [facility] Address [address], [facility] [address] [place] [address] Phone Care Team Providers Care Asp Web Developer Name Role Phone Rosie Renner MD Primary Care Provi vero Rosie Renner MD Unavailable [phone] Social History Tobacco Use Types Packs/Day Years [...] Most Recently Relevant to Health Maintenance Insurance [facility] Care Teams Asp Web Developer Relationship Specialty Start Date End Date Rosie Renner MD [address] [place] [address] PCP - General Family Medicine 12/08/18 Rosie Renner MD [address] [place] [address] Family Medicine 12/08/18
--- OUTSIDE RECORDS SUMMARY | 2024-12-05 09:35 | XMS_ITS | Clinical Summary ---
Author Organization [facility] Address [address] [place] [address] Care Team Providers Care Supervisor Component Assembler Name Role Phone Marielos Carver MD Primary Care Provider [phone] Anuel Hall MD Unavailable [phone] Allergies No known active allergies Medications tamsulosin (FLOMAX) 0.4 mg extended release capsule Take 0.4 mg by mouth nightly Active Active Problems Problem Noted Date Diagnosed Date BALTAZAR (obstructive sleep apnea) 09/18/2022 Morbid obesity 09/18/2022 BPH (benign prostatic hyperplasia) 09/18/2022 Nephrolithiasis 09/18/2022 Surgical History Surgery Date Site/Laterality Comments ANKLE SURGERY LITHOTRIPSY Social History Tobacco Use Types Packs/Day Years [...] on file Legal Sex Male 9:10 AM EQUIPMENT DETAILER Gender Identity Not on file Sexual Orientation Not on file Obstetrics History Last Filed Vital Signs Vital Sign Reading Time Taken Comments Blood Pressure 146/72 10/01/2022 3:15 PM EQUIPMENT DETAILER Pulse 77 10/01/2022 3:15 PM EQUIPMENT DETAILER Temperature 36.3 C (97.3 F) 10/01/2022 2:45 PM EQUIPMENT DETAILER Respiratory Rate 12 10/01/2022 3:15 PM EQUIPMENT DETAILER Oxygen Saturation 95% 10/01/2022 3:15 PM EQUIPMENT DETAILER Inhaled Oxygen Concentration - - Weight 140 kg (308 lb 10.3 oz) 10/01/2022 12:00 PM EQUIPMENT DETAILER Height 175.3 cm (5' 9 ) 10/01/2022 12:00 PM EQUIPMENT DETAILER Body Mass Index 45.58 10/01/2022 12:00 PM EQUIPMENT DETAILER Plan of Treatment Health Maintenance Due Date Last Done Comments Colon Cancer Screening-Colonoscopy 1959 Depression Screening 1959 Hepatitis C Screening 1959 Prostate Cancer Screening-PSA 1959 Pneumococcal vaccine <65 (1 of 2 - PCV) 12/30/1965 Hepatitis B Screening 12/30/1977 Regular Well Visit/Exam 18-64 12/30/1977 Zoster Vaccine (1 of 2) 12/30/2009 Covid-19 Vaccine ( season) 2024 09/29/2021, 02/24/2021, 02/03/2021 Influenza Vaccine (#1) 2024 DTaP/Tdap/Td Vaccine (3 - Td or Tdap) 08/23/2028 08/23/2018, 05/12/2010, 11/05/1995 Medical Devices Implanted Type Area Manager Support Device Identifier Shelf Expiration Date Model / Serial / Lot [employer] Lesli Contour Vl 6fr 22-30cm Large Inner Lumen Low Profile Bladder Maged Latex Free [id number] - Snone - [id number] Implanted:Qty: 1 on 10/01/2022 by Anuel Hall MD at [facility] Stent Left: Ureter [employer] Lesli 07/06/2025 [id number] 0 / NONE / [id number] Insurance [facility] CMR Care Teams Supervisor Component Assembler Relationship Specialty Start Date End Date Marielos Carver MD PCP - General Family Medicine 09/16/22 Anuel Hall MD [address] [place] [address] Consulting Physician Urology 10/01/22
[2025-01-01 13:40] VITALS: BMI 45.0
--- NOTE | 2025-01-01 13:40 | WPDSLEEPSTUD ---
Sleep Study Date of Study: 12/05/24 Ordering Provider: Liliana Olivas PA-C Interpreting Physician: Amber Lowry DO Sleep Study Type: Split Polysomnogram Height: 1.75 m Weight: 138.346 kg Body Mass Index: 45.0 Neck Circumference (inches): 21 [place]: 9 Reason for Sleep Study Snoring, nocturnal gasping Sleep History The patient is a 64-year-old male that had a sleep study ordered by his primary care for evaluation of sleep apnea. The patient rarely awakens from sleep short of breath. He rarely awakens at night with heartburn, belching or cough. He occasionally snores and is occasionally loud enough that others complain. He denies having trouble sleeping when he has a cold. He occasionally wakes up gasping for air throughout the night. He denies having breathing problems at night observed by himself or others. He occasionally sweats excessively at night. He denies having heart palpitations or irregular heartbeats during the night. He occasionally falls asleep during the day but never while driving. He denies sleep paralysis and cataplexy. He denies having trouble at school or work due to sleepiness. He occasionally experiences vivid dreamlike scenes upon awakening or falling asleep. He denies feeling afraid of going to sleep. He denies having nightmares. He occasionally remembers his dreams. He occasionally has thoughts racing through his mind. He denies feeling sad or depressed. He occasionally has anxiety. He denies having muscular tension. He occasionally notices parts of his body jerk. He occasionally kicks during the night. He frequently has crawling and aching feelings in his legs and frequently has leg pain during the night. He denies grinding his teeth during sleep and denies awakening with morning jaw pain. He is occasionally bothered by pain during the day and occasionally awakened by pain during the night. He occasionally wakes up feeling stiff the morning. He occasionally wakes up with sore or achy muscles. He occasionally wakes up with pain in neck, spine and other joints. He goes to bed between 9-10 p.m. on both weekdays and weekends. It takes him 20-30 minutes to fall asleep. He wakes up 2-3 times throughout the night to urinate and is able to fall back asleep within 5 minutes. He wakes up between 5-6 a.m. on both weekdays and weekends. He typically gets 6-7 hours of sleep per night. He does not stay in bed after waking up in the morning. He currently lives with his and adult son. He denies consuming any caffeinated beverages within 2 hours of bedtime. He denies engaging in physical exercise before bedtime. He will watch television before falling asleep. He will take naps in the afternoon or the evening. He consumes 2 cups of caffeinated beverage per day. He smokes 3-6 cigarettes per day. He denies consuming any alcoholic beverages. He does use an unspecified recreational drug. [facility] Past Medical History Medical History Current tobacco use Morbid obesity Arthritis Low testosterone level in male Osteoarthritis of right knee Surgical History Surgical History History of ankle surgery left, 1997 H/O arthroscopy of right knee Dr. Baca 2010 Family History Family History Mother Depression Heart disease Hypertension Parkinson disease Father Skin cancer Alzheimer's dementia Sibling Heart disease Hypertension Father Family history of dementia Mother Family history of coronary artery disease Social History Social History Smoking packs per day: 1 Smoking cigarettes per day: 20.0 Years smoked: 40 Smoking pack-years: 40.00 Smoking status: Current every day smoker Tobacco type: cigarettes (4-6 cigarettes per day. has smoked for 40 years. 30 years at 1 ppd) Second hand tobacco smoke exposure: Yes Additional smoking assessment comments: reports that he has decreased his tobacco use Alcohol intake: current Drinks per week: 2 Alcohol use details: seldom; socially Substance use: current Substance use type: marijuana Other substance usage details: RECEARATIONAL 1-2X MONTH Last use: END May Living arrangements: with family Occupation/Education: retired Gender identity (if verbalized by the patient): Male Spiritual care concerns: No Medications Home Medications ?Medication ?Instructions ?Recorded ?Confirmed ?Type tamsulosin 0.4 mg capsule (Flomax) 0.4 mg PO HS 07/02/22 11/01/24 History finasteride 5 mg tablet 5 mg PO DAILY #1 tablet 11/01/24 11/01/24 Rx acetaminophen 500 mg tablet 1,000 mg (2 x 500 mg) PO TID PRN 12/09/24 Rx michael 7 days #42 tabs cefdinir 300 mg capsule 300 mg PO Q12H #14 caps 12/09/24 Rx ibuprofen 800 mg tablet 800 mg PO TID PRN pain 7 days #21 12/09/24 Rx tabs ondansetron 4 mg disintegrating 4 mg PO Q8H PRN nausea and 12/09/24 Rx tablet vomiting #30 tabs oxycodone 5 mg tablet 5 mg PO Q4H PRN pain #14 tabs 12/09/24 Rx Sleep Procedure A full night split study using the edenes multi-channel system recorded the standard physiologic parameters including EEG, EOG, submentalis EMG, anterior tibialis EMG, EKG, body position, nasal and oral airflow using nasal pressure sensor and thermistor.? Respiratory parameters of chest and abdominal movements were recorded with Respiratory Inductance Plethysmography belts. Oxygen saturation was recorded by pulse oximetry. Video monitoring was also performed. Sleep stages, periodic limb movements, and EEG arousals were scored in 30 second epochs according to the criteria of the AASM Scoring Manual. The Apnea-Hypopnea Index was calculated using CMS guidelines for definition of hypopnea with 4% O2 desaturations while scoring respiratory events. Sleep Architecture During the diagnostic portion of the study, the total recording time was 295.0 minutes. The total sleep time was 120.0 minutes. Sleep latency was 39.0 minutes.? REM latency was - minutes. Sleep Efficiency was 40.7%. The patient had 39 awakenings for an awakening index of 19.5. Wake after sleep onset time was 136.0 minutes. The patient spent 58.0 minutes, 48.3% of total sleep time in Stage N1. The patient spent 62.0 minutes, 51.7% in Stage N2. The patient spent 0.0 minutes, 0.0% in Stage N3. The patient spent 0.0 minutes, 0.0% in Stage REM sleep. At 02:31:58 AM the patient was placed on PAP treatment and was titrated at pressures ranging from 5 cm H20 up to 7 cm H20 with EPR of 2. During the treatment portion of the study, the total recording time was 103.7 minutes.? The total sleep time was 6.0 minutes. Sleep latency was 26.5 minutes. REM latency was - minutes. Sleep Efficiency was 5.8%. Wake after Sleep Onset time was 71.0 minutes. The patient spent 4.0 minutes, 66.7% of total sleep time in Stage N1. The patient spent 2.0 minutes, 33.3% in Stage N2. The patient spent 0.0 minutes, 0.0% in Stage N3. The patient spent 0.0 minutes, 0.0% in Stage REM. Respiratory Analysis During the diagnostic portion of the study, the patient had 71 hypopneas, 19 obstructive apneas and 2 central apneas for an overall Apnea Hypopnea Index of 46.0 events per hour. The REM Apnea Hypopnea Index was 0. The NREM Apnea Hypopnea Index was 46.0. The patient had a Central Apnea Hypopnea Index of 1.0. There was no evidence of Fili-Ramirez Respirations. During the treatment portion of the study, the patient had 1 hypopnea and 3 obstructive apneas for an overall Apnea Hypopnea Index of 40.0 events per hour. The REM Apnea Hypopnea Index was 0. The NREM Apnea Hypopnea Index was 40.0. The patient had a Central Apnea Hypopnea Index of 0. There was no evidence of Fili-Ramirez Respirations. The patient was started on CPAP 5 cm H2O and titrated to CPAP 7 cm H2O with EPR of 2. No optimal CPAP pressure was found due to the patient only having 6 minutes of total sleep time during the titration portion of the study. Arousals During the diagnostic portion of the study, there were a total of 93 arousals for an arousal index of 46.5.? There were 43 respiratory arousals for an index of 21.5. There were 2 periodic limb movement arousals for an index of 1.0.? There were 5 isolated limb movement arousals for an index of 2.5. There were 43 spontaneous arousals for an index of 21.5. During the treatment portion of the study, there were a total of 6 arousals for an index of 60.0.? There were 4 respiratory arousals for an index of 40.0. There were 0 periodic limb movement arousals for an index of 0.? There were 0 isolated limb movement arousals for an index of 0. There were 2 spontaneous arousals for an index of 20.0. Periodic Limb Movements During the diagnostic portion of the study, the patient had 20 isolated limb movements with an index of 10.0. The patient had 5 periodic limb movements with an index of 2.5. The patient had a total of 25 limb movements with a total limb movement index of 12.5. During the treatment portion of the study, the patient had 3 isolated limb movements with an index of 30.0. The patient had 0 periodic limb movements with an index of 0. The patient had a total of 3 limb movements with a total limb movement index of 30.0. Oximetry Data During the diagnostic portion of the study, the patient had an average oxygen saturation of 93% in wake with a minimum oxygen saturation of 88% and a maximum oxygen saturation of 98%. The patient had an average oxygen saturation of 91.8% in sleep with a minimum oxygen saturation of 87.0% and a maximum oxygen saturation of 97.0%. The patient had 152 oxygen desaturations resulting in an Oxygen Desaturation Index of 76.0. The patient spent 2.0 minutes, 0.7% of total sleep time with an oxygen saturation less than 88%. During the treatment portion of the study, the patient had an average oxygen saturation of 93.5% in wake with a minimum oxygen saturation of 89.0% and a maximum oxygen saturation of 98.0%. The patient had an average oxygen saturation of 92.8% in sleep with a minimum oxygen saturation of 90.0% and a maximum oxygen saturation of 96.0%. The patient had 6 oxygen desaturations resulting in an Oxygen Desaturation Index of 60.0. The patient spent 0 minutes of total sleep time with an oxygen saturation less than 88%. Snoring Profile Mild to moderate snoring was present in the baseline portion of the study. Cardiac Profile The EKG lead showed normal sinus rhythm. No arrhythmias or PVCs were seen. During the diagnostic portion of the study, the average pulse rate was 62.5 bpm.? The minimum pulse rate was 52.0 bpm. The maximum pulse rate was 86.0 bpm. During the treatment portion of the study, the average pulse rate was 63.7 bpm.? The minimum pulse rate was 55.0 bpm. The maximum pulse rate was 89.0 bpm. EEG Profile No signs of seizure activity seen. Assessment and Plan Assessment and Plan (1) BALTAZAR (obstructive sleep apnea): Code(s): G47.33 - Obstructive sleep apnea (adult) (pediatric) Status: Acute Assessment and Plan: In the baseline portion of the study, the patient had an overall AHI of 46.0 with desaturation down to 87%. This is consistent with severe sleep apnea. The patient was started on CPAP 5 cm H2O and titrated to CPAP 7 cm H2O with EPR of 2. No optimal CPAP pressure was found due to the patient only having 6 minutes of total sleep time during the titration portion of the study. The patient had a sleep latency of 39 minutes and only slept 40.7% of the time during the baseline portion of the study, so he was unable to qualify for CPAP until 2:30 am. I recommend that the patient have a CPAP Titration study with the use of a hypnotic (Lunesta 2-3 mg or Ambien 10 mg) to ensure we obtain enough sleep data and find an optimal pressure setting. Data The data obtained during this sleep study is adequate for interpretation. Certification This sleep study has been reviewed by a board certified sleep medicine physician.
== END 2024-12-06 05:07 | disposition home or self-care (01) ==
LOC: ANHCSM 08:56
PROVIDERS: PCP Family Medicine; Visit Provider Student in an Organized Health Care Education/Training Program
DX: G47.10 Hypersomnia, unspecified (principal); R53.83 Other fatigue; G47.33 Obstructive sleep apnea (adult) (pediatric)
CPT/HCPCS: 95811

== ENCOUNTER 2024-12-09 17:16 | Emergency (ER) | payer OTHER, SELFPAY ==
--- NOTE | ~2024-12-09 | CT_ITS ---
CLINICAL INDICATION: Left flank pain and hematuria COMPARISON: 07/07/2024. TECHNIQUE: Multiple contiguous axial images of the abdomen and pelvis were performed without the admi nistration of intravenous contrast The dose-length product (DLP) was 2427.41 mGy-cm. Automated exposure control and iterative reconstruction technique were employed. FINDINGS/OBSERVATIONS: Visualized lower thorax: The bilateral lung bases are clear. The heart is of normal size, without pericardial effusion. Small hiatal hernia is present. Liver: The liver demonstrates homogeneous attenuation and is borderline enlarged measuring 19 cm in longitud inal dimension. Gallbladder and biliary system: The gallbladder is only minimally distended, and otherwise unremarkable. Pancreas: Limited evaluation of the pancreas secondary to the lack of intravenous contrast. Spleen: The spleen demonstrates homogeneous attenuation and is not enlarged measuring 6 cm in longitudinal di mension. Kidneys: Nonobstructing 3 mm calculus within the lower pole of the left kidney. Left-sided hydroureteronephrosis extending to the proximal left ureter where a 5.5 mm stone is identi fied. The right kidney and ureter are unremarkable. Adrenal glands: Unremarkable. Gastrointestinal tract: Fecal stasis within the colon. Appendix: The appendix is not definitively visualized. However, no pericecal inflammatory change is identified suggest the presence of acute appendicitis. Vasculature: Unremarkable. Lymph nodes: Limited evaluation without intravenous contrast. Pelvic structures: The bladder is only minimally distended, and otherwise unremarkable. The prostate gland is not enlarged and demonstrates multiple bulky calcifications. Body wall and musculoskeletal: Moderate degenerative disease within the lumbosacral spine with osteophyte formation, disc space narr owing, endplate changes and vacuum phenomena. No acute compression fracture is appreciated. IMPRESSION: Left-sided hydroureteronephrosis secondary to a 5.5 mm calculus in the proximal left ureter. Reviewed, dictated and finalized at location A. ENT SCHEDULING COORDINATOR
--- OUTSIDE RECORDS SUMMARY | 2024-12-09 17:18 | XMS_ITS | Clinical Summary ---
Author Organization [facility] Address [address], [facility] [address] [place] [address] Phone Care Team Providers Care Healthcare Prof Name Role Phone Rosie Renner MD Primary Care Provi vero Rosie Renner MD Unavailable [phone] Social History Tobacco Use Types Packs/Day Years [...] Most Recently Relevant to Health Maintenance Insurance [facility] Care Teams Healthcare Prof Relationship Specialty Start Date End Date Rosie Renner MD [address] [place] [address] PCP - General Family Medicine 12/08/18 Rosie Renner MD [address] [place] [address] Family Medicine 12/08/18
--- OUTSIDE RECORDS SUMMARY | 2024-12-09 17:18 | XMS_ITS | Continuity of Care Document ---
Author Organization [facility] Address [address] [place] [address] Exec utive [facility] [address] [place] [address] Phone Care Team Providers Care Mechanical Repair Worker Name Role Phone Kerr OD, Maged Unavailable Unavailable Advance Directives Directive Yes / No Effective Date File Name No Information Encounters Encounter Description Practice Location Reason(s) For Visit Diagnoses Date Provider Providers Copied on Encounter [facility], [address] [place] [address] [address], [place], [place], [id number], [place] tel:[phone] [facility] No Information 4-200 5 Kerr OD Maged. [address] , [address], [place], [address], [place]. tel:[phone] Family History Family Member Type Diagnosis Age At Onset No Information Payers Payer name Insurance type Covered republican ID Authoriza tion(s) [employer] ALBIN LEE [id number] Social History Type Description Quantity Date Captured [...]
--- OUTSIDE RECORDS SUMMARY | 2024-12-09 17:18 | XMS_ITS | Clinical Summary ---
Author Organization [facility] Address [address] [place] [address] Care Team Providers Care Plant Engineering Supervisor Name Role Phone Marielos Carver MD Primary Care Provider [phone] Anuel Hall MD Unavailable [phone] Allergies No known active allergies Medications [...] on file Legal Sex Male 9:10 AM ELECTRICAL ENGINEERING DRAFTSPERSON Gender Identity Not on file Sexual Orientation Not on file Obstetrics History Last Filed Vital Signs Vital Sign Reading Time Taken Comments Blood Pressure 146/72 10/01/2022 3:15 PM ELECTRICAL ENGINEERING DRAFTSPERSON Pulse 77 10/01/2022 3:15 PM ELECTRICAL ENGINEERING DRAFTSPERSON Temperature 36.3 C (97.3 F) 10/01/2022 2:45 PM ELECTRICAL ENGINEERING DRAFTSPERSON Respiratory Rate 12 10/01/2022 3:15 PM ELECTRICAL ENGINEERING DRAFTSPERSON Oxygen Saturation 95% 10/01/2022 3:15 PM ELECTRICAL ENGINEERING DRAFTSPERSON Inhaled Oxygen Concentration - - Weight 140 kg (308 lb 10.3 oz) 10/01/2022 12:00 PM ELECTRICAL ENGINEERING DRAFTSPERSON Height 175.3 cm (5' 9 ) 10/01/2022 12:00 PM ELECTRICAL ENGINEERING DRAFTSPERSON Body Mass Index 45.58 10/01/2022 12:00 PM ELECTRICAL ENGINEERING DRAFTSPERSON Plan of Treatment Health Maintenance Due Date [...] 05/12/2010, 11/05/1995 Medical Devices Implanted Type Area Systems Project Manager Device Identifier Shelf Expiration Date Model / Serial / Lot [employer] [employer] Lesli Contour Vl 6fr 22-30cm Large Inner Lumen Low Profile Bladder Maged Latex Free [id number] - Snone - [id number] Implanted:Qty: 1 on 10/01/2022 by Anuel Hall MD at [facility] Stent Left: Ureter [employer] Lesli 07/06/2025 [id number] 0 / NONE / [id number] Insurance [facility] CMR Care Teams Plant Engineering Supervisor Relationship Specialty Start Date End Date Marielos Carver MD PCP - General Family Medicine 09/16/22 Anuel Hall MD [address] [place] [address] Consulting Physician Urology 10/01/22
--- OUTSIDE RECORDS SUMMARY | 2024-12-09 17:18 | XMS_ITS | Referral Summary ---
Author Organization [facility] Address [address] [place] [address] Care Team Providers Care Swiss Type Screw Machine Operator Name Role Phone Marielos Carver MD Primary Care Provider [phone] Anuel Hall MD Unavailable [phone] Allergies No known active allergies Medications [...] on file Legal Sex Male 9:10 AM KNOCKUP WORKER Gender Identity Not on file Sexual Orientation Not on file Last Filed Vital Signs Vital Sign Reading Time Taken Comments Blood Pressure 146/72 10/01/2022 3:15 PM KNOCKUP WORKER Pulse 77 10/01/2022 3:15 PM KNOCKUP WORKER Temperature 36.3 C (97.3 F) 10/01/2022 2:45 PM KNOCKUP WORKER Respiratory Rate 12 10/01/2022 3:15 PM KNOCKUP WORKER Oxygen Saturation 95% 10/01/2022 3:15 PM KNOCKUP WORKER Inhaled Oxygen Concentration - - Weight 140 kg (308 lb 10.3 oz) 10/01/2022 12:00 PM KNOCKUP WORKER Height 175.3 cm (5' 9 ) 10/01/2022 12:00 PM KNOCKUP WORKER Body Mass Index 45.58 10/01/2022 12:00 PM KNOCKUP WORKER Plan of Treatment Not on file Medical Devices Implanted Type Area Patient Scheduling Manager Device Identifier Shelf Expiration Date Model / Serial / Lot Butter[employer] Lesli Contour Vl 6fr 22-30cm Large Inner Lumen Low Profile Bladder Maged Latex Free [id number] - Snone - [id number] Implanted:Qty: 1 on 10/01/2022 by Anuel Hall MD at [facility] Stent Left: Ureter [employer] Lesli 07/06/2025 [id number] 0 / NONE / [id number] Insurance [facility] Care Teams Swiss Type Screw Machine Operator Relationship Specialty Start Date End Date Marielos Carver MD PCP - General Family Medicine 09/16/22 Anuel Hall MD [address] [facility] [address] [place] [address] Consulting Physician Urology 10/01/22
[2024-12-09 17:23] VITALS: BP 150/79; PULSE 68; RESP 18; TEMP 36.4; O2SAT 100
--- OUTSIDE RECORDS SUMMARY | 2024-12-09 18:23 | XMS_ITS | Clinical Summary ---
Author Organization [facility] Address [address] [place] [address] Care Team Providers Care Silk Hanger Name Role Phone Marielos Carver MD Primary Care Provider [phone] Anuel Hall MD Unavailable [phone] Allergies No known active allergies Medications [...] on file Legal Sex Male 9:10 AM LACE BURN OUT TENDER Gender Identity Not on file Sexual Orientation Not on file Obstetrics History Last Filed Vital Signs Vital Sign Reading Time Taken Comments Blood Pressure 146/72 10/01/2022 3:15 PM LACE BURN OUT TENDER Pulse 77 10/01/2022 3:15 PM LACE BURN OUT TENDER Temperature 36.3 C (97.3 F) 10/01/2022 2:45 PM LACE BURN OUT TENDER Respiratory Rate 12 10/01/2022 3:15 PM LACE BURN OUT TENDER Oxygen Saturation 95% 10/01/2022 3:15 PM LACE BURN OUT TENDER Inhaled Oxygen Concentration - - Weight 140 kg (308 lb 10.3 oz) 10/01/2022 12:00 PM LACE BURN OUT TENDER Height 175.3 cm (5' 9 ) 10/01/2022 12:00 PM LACE BURN OUT TENDER Body Mass Index 45.58 10/01/2022 12:00 PM LACE BURN OUT TENDER Plan of Treatment Health Maintenance Due Date [...] 05/12/2010, 11/05/1995 Medical Devices Implanted Type Area Cost Accounting Analyst Device Identifier Shelf Expiration Date Model / Serial / Lot Lyk[employer] Lesli Contour Vl 6fr 22-30cm Large Inner Lumen Low Profile Bladder Maged Latex Free [id number] - Snone - [id number] Implanted:Qty: 1 on 10/01/2022 by Anuel Hall MD at [facility] Stent Left: Ureter [employer] Lesli 07/06/2025 [id number] 0 / NONE / [id number] Insurance [facility] CMR Care Teams Silk Hanger Relationship Specialty Start Date End Date Marielos Carver MD PCP - General Family Medicine 09/16/22 Anuel Hall MD [address] [place] [address] Consulting Physician Urology 10/01/22
--- OUTSIDE RECORDS SUMMARY | 2024-12-09 18:23 | XMS_ITS | Continuity of Care Document ---
Author Organization [facility] Address [address] [place] [address] Exec utive [facility] [address] [place] [address] Phone Care Team Providers Care Educational Sign Language Interpreter Name Role Phone Kerr OD, Maged Unavailable Unavailable Advance Directives Directive Yes / No Effective Date File Name No Information Encounters Encounter Description Practice Location Reason(s) For Visit Diagnoses Date Provider Providers Copied [facility]counter [facility] [address] [place] [address] [address], [place], [place], [address], [place] tel:[phone] [facility] No Information 4-200 5 Kerr OD Maged. [address] , [address], [place], [address], [place]. tel:[phone] Family History Family Member Type Diagnosis Age At Onset No Information Payers Payer name Insurance type Covered constitution party ID Authoriza tion(s) [employer] ALBIN LEE [id number] Social History Type Description Quantity Date Captured [...]
--- OUTSIDE RECORDS SUMMARY | 2024-12-09 18:23 | XMS_ITS | Referral Summary ---
Author Organization [facility] Address [address] [place] [address] Care Team Providers Care Mobile Application Tester Name Role Phone Marielos Carver MD Primary Care Provider [phone] Anuel Hall MD Unavailable [phone] Allergies No known active allergies Medications [...] on file Legal Sex Male 9:10 AM SKIDDER Gender Identity Not on file Sexual Orientation Not on file Last Filed Vital Signs Vital Sign Reading Time Taken Comments Blood Pressure 146/72 10/01/2022 3:15 PM SKIDDER Pulse 77 10/01/2022 3:15 PM SKIDDER Temperature 36.3 C (97.3 F) 10/01/2022 2:45 PM SKIDDER Respiratory Rate 12 10/01/2022 3:15 PM SKIDDER Oxygen Saturation 95% 10/01/2022 3:15 PM SKIDDER Inhaled Oxygen Concentration - - Weight 140 kg (308 lb 10.3 oz) 10/01/2022 12:00 PM SKIDDER Height 175.3 cm (5' 9 ) 10/01/2022 12:00 PM SKIDDER Body Mass Index 45.58 10/01/2022 12:00 PM SKIDDER Plan of Treatment Not on file Medical Devices Implanted Type Area Assignment Agent Device Identifier Shelf Expiration Date Model / Serial / Lot Laura Scientific Lesli Contour Vl 6fr 22-30cm Large Inner Lumen Low Profile Bladder Maged Latex Free [id number] - Snone - [id number] Implanted:Qty: 1 on 10/01/2022 by Anuel Hall MD at [facility] Stent Left: Ureter [employer] Lesli 07/06/2025 [id number] 0 / NONE / [id number] Insurance [facility] Care Teams Mobile Application Tester Relationship Specialty Start Date End Date Marielos Carver MD PCP - General Family Medicine 09/16/22 Anuel Hall MD [address] [facility] [address] [place] [address] Consulting Physician Urology 10/01/22
--- OUTSIDE RECORDS SUMMARY | 2024-12-09 18:23 | XMS_ITS | Clinical Summary ---
Author Organization [facility] Address [address], [facility] [address] [place] [address] Phone Care Team Providers Care Heavy Mobile Equipment Operator Name Role Phone Rosie Renner MD Primary Care Provi vero Rosie Renner MD Unavailable [phone] Social History Tobacco Use Types Packs/Day Years [...] Most Recently Relevant to Health Maintenance Insurance [facility] Care Teams Heavy Mobile Equipment Operator Relationship Specialty Start Date End Date Rosie Renner MD [address] [place] [address] PCP - General Family Medicine 12/08/18 Rosie Renner MD [address] [place] [address] Family Medicine 12/08/18
[2024-12-09 18:41] VITALS: BP 160/84; PULSE 65; RESP 15; O2SAT 98
[2024-12-09 19:14] LABS: Add Urine Microscopic? YES; Appearance Urine Cloudy (Clear); Bacteria Urine None Seen /hpf; Bilirubin Urine Negative (Negative); Blood Urine 3+ (Negative); Calcium Oxalate Crystals Urine Present /hpf; Color Urine Yellow (Yellow); Glucose Urine UA Negative (Negative); Hyaline Casts Urine Present /lpf; Ketones Urine Trace mg/dL (Negative); Leukocyte Esterase Ur Negative LEU/UL (Negative); Mucus Urine Present /lpf; Need Manual Microscopic Reviewed; Nitrate Urine Negative (Negative); Non Pathogenic Casts 0-2; Protein Urine 1+ mg/dL (Negative); RBC Urine >100 /hpf (0-2); Squamous Epithelial Cell Urine None Seen /hpf (Few); WBC Urine 0-5 /hpf (0-3)
--- NOTE | 2024-12-09 19:19 | ED.GENADULT ---
HPI - General Adult General Chief complaint: Urogenital-Male <Mark Samaniego MD - Last Filed: 12/10/24 16:57> Stated complaint: R flank pain into the abd, vomiting <Mark Samaniego MD - Last Filed: 12/10/24 16:57> Time Seen by Provider: 12/09/24 18:15 <Mark Samaniego MD - Last Filed: 12/10/24 16:57> History of Present Illness HPI narrative: [age] male with history of ureteral calculi present to the emergency department for evaluation for left flank pain this been ongoing for the last 3-4 days. Patient states the pain was left lower flank initially and did radiate to the front over the last few days. Patient has had multiple procedures to remove stones and does typically follow-up with Dr. Hall. Patient had been taking Tylenol for pain control but states this is no longer helping. <Mark Samaniego MD - Last Filed: 12/10/24 16:57> Related Data Home medications: Home Medications ?Medication ?Instructions ?Recorded ?Confirmed ?Last Taken ?Type tamsulosin 0.4 mg capsule (Flomax) 0.4 mg PO HS 07/02/22 11/01/24 07/01/22 History <Mark Samaniego MD - Last Filed: 12/10/24 16:57> Allergies/adverse reactions: Allergies Allergy/AdvReac Type Severity Reaction Status Date / Time No Known Allergies Allergy Verified 12/09/24 18:42 <Mark Samaniego MD - Last Filed: 12/10/24 16:57> Review of Systems Review of Systems: All systems reviewed & are unremarkable except as noted in HPI and below <Mark Samaniego MD - Last Filed: 12/10/24 16:57> [facility] Past Medical History Medical History: Medical History (Updated 12/09/24 @ 20:46 by Bryant Thompson MD) Current tobacco use Morbid obesity Arthritis Low testosterone level in male Osteoarthritis of right knee <Mark Samaniego MD - Last Filed: 12/10/24 16:57> Surgical History Surgical History: Surgical History History of ankle surgery left, 1997 H/O arthroscopy of right knee Dr. Baca 2010 <Mark Samaniego MD - Last Filed: 12/10/24 16:57> Family History Family History: Family History Mother Depression Heart disease Hypertension Parkinson disease Father Skin cancer Alzheimer's dementia Sibling Heart disease Hypertension Father Family history of dementia Mother Family history of coronary artery disease <Mark Samaniego MD - Last Filed: 12/10/24 16:57> Social History Social History: Social History Smoking packs per day: 1 Smoking cigarettes per day: 20.0 Years smoked: 40 Smoking pack-years: 40.00 Smoking status: Current every day smoker Tobacco type: cigarettes (4-6 cigarettes per day. has smoked for 40 years. 30 years at 1 ppd) Second hand tobacco smoke exposure: Yes Additional smoking assessment comments: reports that he has decreased his tobacco use Alcohol intake: current Drinks per week: 2 Alcohol use details: seldom; socially Substance use: current Substance use type: marijuana Other substance usage details: RECEARATIONAL 1-2X MONTH Last use: END May Living arrangements: with family Occupation/Education: retired Gender identity (if verbalized by the patient): Male Spiritual care concerns: No <Mark Samaniego MD - Last Filed: 12/10/24 16:57> Exam Narrative: APPEARANCE: No significant distress HEAD: normocephalic, atraumatic. EYES: PERRLA/EOMI, conjunctivae clear. NOSE: Normal no drainage EARS:TMS clear with good light reflex. THROAT: Pharynx clear, no exudate. NECK: Supple. No adenopathy, no masses. RESPIRATORY: Airway patent, respirations nonlabored. Clear to auscultation bilaterally, no rales, rhonchi, wheezing. CARDIOVASCULAR: Regular rate and rhythm without murmurs rubs or gallops. ABDOMINAL: No significant left CVA tenderness to palpation, some mild left lower quadrant tenderness to palpation MUSCULOSKELETAL: Moves all extremities. Strength/ROM intact, No edema, No calf tenderness. NEURO: Alert. Cranial nerves II through XII intact. Good gait. Good coordination SKIN: Warm, dry. Normal Color <Mark Samaniego MD - Last Filed: 12/10/24 16:57> Course Course Emergency Course: NEDA: Patient signed out pending CT scan. CT showed a 5.5 mm stone with some hydronephrosis. White count was elevated at 15 but urine is clean without evidence of infection. More likely to be reactive leukocytosis. He will be covered with antibiotics just in case. On re-evaluation patient is resting comfortable in bed. I discussed admission versus discharge he is comfortable being discharged home. Pain medication, antiemetics and antibiotics were provided. Instructions given and return precautions given. <Bryant Thompson MD - Last Filed: 12/09/24 21:03> Vital Signs Vital signs: Vital Signs Temperature 97.6 F 12/09/24 17:23 Pulse Rate 68 12/09/24 17:23 Respiratory Rate 18 12/09/24 17:23 Blood Pressure 150/79 H 12/09/24 17:23 Pulse Oximetry 100 12/09/24 17:23 Oxygen Delivery Room Air 12/09/24 17:23 Temperature 97.6 F 12/09/24 17:23 Pulse Rate 75 12/09/24 22:01 Respiratory Rate 17 12/09/24 22:01 Blood Pressure 132/81 12/09/24 22:01 Pulse Oximetry 99 12/09/24 22:01 Oxygen Delivery Room Air 12/09/24 17:23 <Mark Samaniego MD - Last Filed: 12/10/24 16:57> Vital Signs Temperature 97.6 F 12/09/24 17:23 Pulse Rate 68 12/09/24 17:23 Respiratory Rate 18 12/09/24 17:23 Blood Pressure 150/79 H 12/09/24 17:23 Pulse Oximetry 100 12/09/24 17:23 Oxygen Delivery Room Air 12/09/24 17:23 Temperature 97.6 F 12/09/24 17:23 Pulse Rate 75 12/09/24 22:01 Respiratory Rate 17 12/09/24 22:01 Blood Pressure 132/81 12/09/24 22:01 Pulse Oximetry 99 12/09/24 22:01 Oxygen Delivery Room Air 12/09/24 17:23 <Bryant Thompson MD - Last Filed: 12/09/24 21:03> Medical Decision Making MDM Narrative Medical decision making narrative: [age] old male presenting emergency department for evaluation for left-sided flank pain that feels consistent with a prior ureteral calculi. Patient is currently afebrile but does have a leukocytosis of 15.1 and hemoglobin of 16.1. Patient does have a creatinine of 1.3 which is similar to previous. Patient was treated with a L of IV fluids. Urine was positive for hematuria but negative for infection. Patient was treated with medications for IV pain control. At time of sign-out CT abdomen pelvis was pending. CT scan did show Left-sided hydroureteronephrosis secondary to a 5.5 mm calculus in the proximal left ureter. Patient's pain was controlled patient was discharged by the overnight physician. <Mark Samaniego MD - Last Filed: 12/10/24 16:57> Differential Diagnosis Differential Diagnosis: Ureteral calculi, UTI, colitis, diverticulitis <Mark Samaniego MD - Last Filed: 12/10/24 16:57> Vital Signs Vital Signs: Vital Signs Temperature 97.6 F 12/09/24 17:23 Pulse Rate 68 12/09/24 17:23 Respiratory Rate 18 12/09/24 17:23 Blood Pressure 150/79 H 12/09/24 17:23 Pulse Oximetry 100 12/09/24 17:23 Oxygen Delivery Room Air 12/09/24 17:23 Temperature 97.6 F 12/09/24 17:23 Pulse Rate 75 12/09/24 22:01 Respiratory Rate 17 12/09/24 22:01 Blood Pressure 132/81 12/09/24 22:01 Pulse Oximetry 99 12/09/24 22:01 Oxygen Delivery Room Air 12/09/24 17:23 <Mark Samaniego MD - Last Filed: 12/10/24 16:57> Vital Signs Temperature 97.6 F 12/09/24 17:23 Pulse Rate 68 12/09/24 17:23 Respiratory Rate 18 12/09/24 17:23 Blood Pressure 150/79 H 12/09/24 17:23 Pulse Oximetry 100 12/09/24 17:23 Oxygen Delivery Room Air 12/09/24 17:23 Temperature 97.6 F 12/09/24 17:23 Pulse Rate 75 12/09/24 22:01 Respiratory Rate 17 12/09/24 22:01 Blood Pressure 132/81 12/09/24 22:01 Pulse Oximetry 99 12/09/24 22:01 Oxygen Delivery Room Air 12/09/24 17:23 <Bryant Thompson MD - Last Filed: 12/09/24 21:03> Lab Data Lab results reviewed: Yes I reviewed the patient's lab results. <Mark Samaniego MD - Last Filed: 12/10/24 16:57> Result diagrams: 12/09/24 19:46 12/09/24 19:46 <Mark Samaniego MD - Last Filed: 12/10/24 16:57> Labs: Lab Results 12/09/24 12/09/24 Range/Units 18:43 19:46 WBC 15.1 H (4.5-10.0) K/mm3 RBC 5.71 (4.6-6.20) M/mm3 Hgb 16.1 (14.0-18.0) g/dL Hct 49.0 (42.0-52.0) % MCV 85.8 (80-100) fl MCH 28.2 (26-34) pg MCHC 32.9 (32-36) g/dl RDW 13.6 (11.5-14.5) % Plt Count 288 (150-375) k/mm3 MPV 10.6 H (7.4-10.4) fl Immature Gran % (Auto) 0.5 (0-0.5) % Neut % (Auto) 81.9 H (45.5-73.1) % Lymph % (Auto) 10.3 L (18.3-44.2) % [place] % (Auto) 6.7 (2.6-8.5) % Eos % (Auto) 0.1 (0-4.4) % Baso % (Auto) 0.5 (0.2-1.2) % Lymph # (Auto) 1.55 (0.9-3.2) K/mm3 [place] # (Auto) 1.0 H (0.1-0.6) K/mm3 Eos # (Auto) 0.0 (0-0.3) K/mm3 Baso # (Auto) 0.1 (0.0-0.1) K/mm3 Abs Immat Gran (auto) 0.07 H (0.00-0.031) K/mm3 Absolute Neuts (auto) 12.4 H (1.3-6.7) K/mm3 Absolute Nucleated RBC 0.000 (0.0-0.012) K/mm3 Nucleated RBC % 0.0 (0.0-0.2) % Sodium 141 (137-145) mmol/L Potassium 4.4 (3.4-5.0) mmol/L Chloride 104 (98-107) mmol/L Carbon Dioxide 23 (22-30) mmol/L Anion Gap 14 H (4-12) mmol/L BUN 20 (9-20) mg/dL Creatinine 1.31 H (0.7-1.3) mg/dL Estim Creat Clear Calc 69 ml/min Estimated GFR 55 L (59 - ) Glucose 123 H (65-110) mg/dL Calcium 9.6 (8.4-10.2) mg/dL Total Bilirubin 0.6 (0.2-1.3) mg/dL AST 27 (17-59) U/L ALT 30 (6-50) U/L Alkaline Phosphatase 68 (38-126) U/L Total Protein 8.0 (6.3-8.2) g/dL Albumin 4.6 (3.5-5.1) g/dL Urine Color Yellow (Yellow) Urine Appearance Cloudy H (Clear) Urine pH 5.0 (5.0-9.0) Ur Specific [place] 1.030 (1.001-1.035) Urine Protein 1+ H (Negative) mg/dL Urine Glucose (UA) Negative (Negative) mg/dL Urine Ketones Trace H (Negative) mg/dL Ur Blood (Man) 3+ H (Negative) Urine Nitrate Negative (Negative) Urine Bilirubin Negative (Negative) Urine Urobilinogen 1.0 (<2.0) mg/dL Add Ur Microanalysis Reviewed Leukocyte Esterase Rfl Negative (Negative) KALEE/UL Urine RBC >100 H (0-2) /hpf Urine WBC 0-5 (0-3) /hpf Ur Squamous Epith Cells None seen (Few) /hpf Calcium Oxalate Crystal Present (None) /hpf Urine Bacteria None seen /hpf Urine Casts 0-2 Hyaline Casts Present (None) /lpf Urine Mucus Present /lpf <Mark Samaniego MD - Last Filed: 12/10/24 16:57> Lab Results 12/09/24 12/09/24 Range/Units 18:43 19:46 WBC 15.1 H (4.5-10.0) K/mm3 RBC 5.71 (4.6-6.20) M/mm3 Hgb 16.1 (14.0-18.0) g/dL Hct 49.0 (42.0-52.0) % MCV 85.8 (80-100) fl MCH 28.2 (26-34) pg MCHC 32.9 (32-36) g/dl RDW 13.6 (11.5-14.5) % Plt Count 288 (150-375) k/mm3 MPV 10.6 H (7.4-10.4) fl Immature Gran % (Auto) 0.5 (0-0.5) % Neut % (Auto) 81.9 H (45.5-73.1) % Lymph % (Auto) 10.3 L (18.3-44.2) % [place] % (Auto) 6.7 (2.6-8.5) % Eos % (Auto) 0.1 (0-4.4) % Baso % (Auto) 0.5 (0.2-1.2) % Lymph # (Auto) 1.55 (0.9-3.2) K/mm3 [place] # (Auto) 1.0 H (0.1-0.6) K/mm3 Eos # (Auto) 0.0 (0-0.3) K/mm3 Baso # (Auto) 0.1 (0.0-0.1) K/mm3 Abs Immat Gran (auto) 0.07 H (0.00-0.031) K/mm3 Absolute Neuts (auto) 12.4 H (1.3-6.7) K/mm3 Absolute Nucleated RBC 0.000 (0.0-0.012) K/mm3 Nucleated RBC % 0.0 (0.0-0.2) % Sodium 141 (137-145) mmol/L Potassium 4.4 (3.4-5.0) mmol/L Chloride 104 (98-107) mmol/L Carbon Dioxide 23 (22-30) mmol/L Anion Gap 14 H (4-12) mmol/L BUN 20 (9-20) mg/dL Creatinine 1.31 H (0.7-1.3) mg/dL Estim Creat Clear Calc 69 ml/min Estimated GFR 55 L (59 - ) Glucose 123 H (65-110) mg/dL Calcium 9.6 (8.4-10.2) mg/dL Total Bilirubin 0.6 (0.2-1.3) mg/dL AST 27 (17-59) U/L ALT 30 (6-50) U/L Alkaline Phosphatase 68 (38-126) U/L Total Protein 8.0 (6.3-8.2) g/dL Albumin 4.6 (3.5-5.1) g/dL Urine Color Yellow (Yellow) Urine Appearance Cloudy H (Clear) Urine pH 5.0 (5.0-9.0) Ur Specific [place] 1.030 (1.001-1.035) Urine Protein 1+ H (Negative) mg/dL Urine Glucose (UA) Negative (Negative) mg/dL Urine Ketones Trace H (Negative) mg/dL Ur Blood (Man) 3+ H (Negative) Urine Nitrate Negative (Negative) Urine Bilirubin Negative (Negative) Urine Urobilinogen 1.0 (<2.0) mg/dL Add Ur Microanalysis Reviewed Leukocyte Esterase Rfl Negative (Negative) KALEE/UL Urine RBC >100 H (0-2) /hpf Urine WBC 0-5 (0-3) /hpf Ur Squamous Epith Cells None seen (Few) /hpf Calcium Oxalate Crystal Present (None) /hpf Urine Bacteria None seen /hpf Urine Casts 0-2 Hyaline Casts Present (None) /lpf Urine Mucus Present /lpf <Bryant Thompson MD - Last Filed: 12/09/24 21:03> Imaging Data Radiologist's impression: Impressions Abdomen/Pelvis CT 12/09/24 20:11 IMPRESSION: Left-sided hydroureteronephrosis secondary to a 5.5 mm calculus in the proximal left ureter. <Mark Samaniego MD - Last Filed: 12/10/24 16:57> Discharge Plan Discharge Clinical Impression: Left ureteral stone <Mark Samaniego MD - Last Filed: 12/10/24 16:57> Patient Disposition: Home, Self-Care <Mark Samaniego MD - Last Filed: 12/10/24 16:57> Condition: Stable <Mark Samaniego MD - Last Filed: 12/10/24 16:57> Instructions: Antibiotic Form, Kidney Stones (ED) <Mark Samaniego MD - Last Filed: 12/10/24 16:57> Additional Instructions: You were seen in the emergency department for a kidney stone. Please use Motrin/Tylenol for pain every 8 hours. Use oxycodone 5mg for breakthrough pain and repeat in 30 minutes if still in severe pain. If that does not control your pain please return to the ED. Use Zofran for nausea. Continue taking your Flomax. Please follow-up with your Urologist for further management. Please return if you develop severe pain, fevers or intractable nausea and vomiting. <Mark Samaniego MD - Last Filed: 12/10/24 16:57> Patient Language: Slovak <Mark Samaniego MD - Last Filed: 12/10/24 16:57> Prescriptions: New acetaminophen 500 mg tablet 1,000 mg PO TID PRN (Reason: michael) 7 Days Qty: 42 0RF cefdinir 300 mg capsule 300 mg PO Q12H Qty: 14 0RF ibuprofen 800 mg tablet 800 mg PO TID PRN (Reason: pain) 7 Days Qty: 21 0RF ondansetron 4 mg tablet,disintegrating 4 mg PO Q8H PRN (Reason: nausea and vomiting) Qty: 30 0RF oxycodone 5 mg tablet 5 mg PO Q4H PRN (Reason: pain) Qty: 14 0RF No Action finasteride 5 mg tablet 5 mg PO DAILY Qty: 1 0RF tamsulosin [Flomax] 0.4 mg Capsule 0.4 mg PO HS <Mark Samaniego MD - Last Filed: 12/10/24 16:57> Follow-up/Referrals: Marielos Carver MD [Primary Care Provider] - Anuel Hall MD [Physician] - 1 Week (Kidney stone.) <Mark Samaniego MD - Last Filed: 12/10/24 16:57>
[2024-12-09 19:31] VITALS: BP 148/75; PULSE 69; RESP 18; O2SAT 97
[2024-12-09 19:51] LABS: Basophils Absolute Auto 0.1 K/mm3 (0.0-0.1); Basophils Percent Auto 0.5 % (0.2-1.2); Eosinophils Percent Auto 0.1 % (0-4.4); Hemoglobin 16.1 g/dL (14.0-18.0); Immature Granulocyte Absolute 0.07 K/mm3 (0.00-0.031); Immature Granulocyte Percent A 0.5 % (0-0.5); Lymphocytes Absolute Auto 1.55 K/mm3 (0.9-3.2); Lymphocytes Percent Auto 10.3 % (18.3-44.2); Mean Corpuscular HGB Conc 32.9 g/dl (32-36); Mean Corpuscular Hemoglobin 28.2 pg (26-34); Mean Corpuscular Volume 85.8 fl (80-100); Mean Platelet Volume 10.6 fl (7.4-10.4); Monocytes Percent Auto 6.7 % (2.6-8.5); Neutrophils Absolute Auto 12.4 K/mm3 (1.3-6.7); Neutrophils Percent Auto 81.9 % (45.5-73.1); Platelet Count Result 288 k/mm3 (150-375); Red Blood Count 5.71 M/mm3 (4.6-6.20); Red Cell Distribution Width 13.6 % (11.5-14.5); White Blood Count 15.1 K/mm3 (4.5-10.0)
[2024-12-09 20:01] LABS: Alanine Aminotransferase 30 U/L (6-50); Albumin Level 4.6 g/dL (3.5-5.1); Alkaline Phosphatase 68 U/L (38-126); Anion Gap 14 mmol/L (4-12); Aspartate Amino Transferase 27 U/L (17-59); Bilirubin,Total 0.6 mg/dL (0.2-1.3); Blood Urea Nitrogen 20 mg/dL (9-20); Calcium 9.6 mg/dL (8.4-10.2); Carbon Dioxide 23 mmol/L (22-30); Chloride 104 mmol/L (98-107); Estimated CRCL calculation 69 ml/min; Estimated Glomerular Filt Rate 55; Glucose 123 mg/dL (65-110); Potassium 4.4 mmol/L (3.4-5.0); Sodium 141 mmol/L (137-145)
[2024-12-09] MEDS: SODIUM CHLORIDE 0.9% IV 1,000 ML 999 ML IV CONT (20:25)
[2024-12-09] MEDS: ONDANSETRON INJ 4 MG/2 ML VIAL IV PUSH (20:33)
[2024-12-09] MEDS: HYDROmorphone HCL INJ (*CRX) 1 MG/ML SYR IV PUSH (20:36)
[2024-12-09 21:59] VITALS: BP 132/81; PULSE 75; RESP 17; O2SAT 99
[2024-12-09 22:01] VITALS: BP 132/81; PULSE 75; RESP 17; O2SAT 99
== END 2024-12-09 22:03 | disposition home or self-care (01) ==
PROVIDERS: Emergency Provider Emergency Medicine; PCP Family Medicine
DX: N13.2 Hydronephrosis with renal and ureteral calculous obstruction (principal); E66.01 Morbid (severe) obesity due to excess calories; Z68.42 Body mass index [BMI] 45.0-49.9, adult; M17.11 Unilateral primary osteoarthritis, right knee; F17.210 Nicotine dependence, cigarettes, uncomplicated
CPT/HCPCS: 36415; 74176; 80053; 81001; 85025; 96365; 96375; 99284; J0696; J1171; J2405; J7030

== ENCOUNTER 2025-01-11 09:45 | Outpatient (CLI) | payer MEDICARE, SELFPAY ==
--- NOTE | ~2025-01-11 | CT_ITS ---
Non-contrast CT scan of the Abdomen and Pelvis Clinical indication: Left ureteral stone Technique: 2.5 mm axial scans were obtained through the abdomen and pelvis without intravenous or or al contrast. Dose reduction technique was used on this scan by utilizing automated exposure control a nd iterative reconstruction technique. The dose-length product (DLP) was 1170.16 mGy-cm. COMPARISON: 12/09/2019 Findings: Images through the lung bases reveal stable tiny left lower lobe pulmonary nodules. 6 mm nonobstructing left renal pole renal stone present. Left ureteral stone has passed, and there is interval resolution of left hydronephrosis. No right renal or right ureteral stone. No right hydrone phrosis. The liver, spleen, pancreas, gallbladder, and adrenals appear normal. There is no aortic aneurysm. There is no evidence of bowel obstruction. Images through the pelvis were performed. There is no evidence of ascites or lymphadenopathy. Urinary bladder unremarkable. No pelvic mass seen. Bilateral L5 pars interarticularis defects are present, w ith grade 1 anterolisthesis of L5 over S1. Impression: Previously noted left ureteral stone has passed in the interval. Interval resolution of left hydronep hrosis. 6 mm nonobstructing left renal stone present. Reviewed, dictated and finalized at location . Impression: Previously noted left ureteral stone has passed in the interval. Interval resol ution of left hydronephrosis. 6 mm nonobstructing left renal stone present.
--- NOTE | ~2025-01-11 | XR_ITS ---
Supine and upright views of the abdomen Clinical history: Left ureteral stone COMPARISON: 07/07/2024 Findings: Bowel gas pattern is nonspecific. No evidence for obstruction or free air. Left lower pole renal stones are similar to prior exam. Osseous structures are intact. Impression: Left lower pole renal stones. Reviewed, dictated and finalized at [facility]. Impression: Left lower pole renal stones.
--- OUTSIDE RECORDS SUMMARY | 2025-01-11 10:16 | XMS_ITS | Clinical Summary ---
Author Organization [facility] Address [address], [facility] [address] [place] [address] Phone Care Team Providers Care Foam Tank Laminator Name Role Phone Rosie Renner MD Primary Care Provi vero Rosie Renner MD Unavailable [phone] Social History Tobacco Use Types Packs/Day Years [...] Most Recently Relevant to Health Maintenance Insurance [facility] Care Teams Foam Tank Laminator Relationship Specialty Start Date End Date Rosie Renner MD [address] [place] [address] PCP - General Family Medicine 12/08/18 Rosie Renner MD [address] [place] [address] Family Medicine 12/08/18
--- OUTSIDE RECORDS SUMMARY | 2025-01-11 10:16 | XMS_ITS | Continuity of Care Document ---
Author Organization [facility] Address [address] [place] [address] [address] [facility] [address] [place] [address] Phone Care Team Providers Care Senior Counsel Commercial Name Role Phone Kerr OD, Maged Unavailable Unavailable Advance Directives Directive Yes / No Effective Date File Name No Information Encounters Encounter Description Practice Location Reason(s) For Visit Diagnoses Date Provider Providers Copied on Encounter [facility], [address] [place] [address] [address], [place], [place], [id number], [place] tel:[phone] [facility] No Information 4-200 5 Kerr OD Maged. [address] , [address], [place], [address], [place]. tel:[phone] Family History Family Member Type Diagnosis Age At Onset No Information Payers Payer name Insurance type Covered republican ID Authoriza tion(s) [employer] ALBIN LEE [id number] Social History Type Description Quantity Date Captured [...]
--- OUTSIDE RECORDS SUMMARY | 2025-01-11 10:16 | XMS_ITS | Referral Summary ---
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 Gender Identity Not on file Sexual Orientation Not on file Last Filed Vital Signs Vital Sign Reading Time Taken Comments Blood Pressure 146/72 10/01/2022 3:15 PM SUPERVISOR W[employer] Pulse 77 10/01/2022 3:15 PM SUPERVISOR WATERWORKS Temperature 36.3 C (97.3 F) 10/01/2022 2:45 PM SUPERVISOR WATERWORKS Respiratory Rate 12 10/01/2022 3:15 PM SUPERVISOR WATERWORKS Oxygen Saturation 95% 10/01/2022 3:15 PM SUPERVISOR WATERWORKS Inhaled Oxygen Concentration - - Weight 140 kg (308 lb 10.3 oz) 10/01/2022 12:00 PM SUPERVISOR WATERWORKS Height 175.3 cm (5' 9 ) 10/01/2022 12:00 PM SUPERVISOR WATERWORKS Body Mass Index 45.58 10/01/2022 12:00 PM SUPERVISOR WATERWORKS Plan of Treatment Not on file Medical Devices Implanted Type Area Construction Driver Device Identifier Shelf Expiration Date Model / Serial / Lot [employer] Lesli Contour Vl 6fr 22-30cm Large Inner Lumen Low Profile Bladder Maged Latex Free [id number] - Snone - [id number] Implanted:Qty: 1 on 10/01/2022 by Anuel Hall MD at [facility] Stent Left: Ureter [employer] Lesli 07/06/2025 [id number] / NONE / [id number] Insurance [facility] Member Subscriber Plan / Payer (Ef fective 2019-Present) Name:Charlie Mclean Relation to Subscriber:Self Name:Charlie Mclean Payer ID:[id number] ([facility]) Type:AETNA HMO/PPO Address: [facility] [id number] [place] [id number] [facility] Care Teams Customer Experience Manager Relationship Specialty Start Date End Date Marielos Carver MD PCP - General Family Medicine 09/16/22 Anuel Hall MD [address] [facility] [[email or web address] [address] [place] [address] Consulting Physician Urology 10/01/22
--- OUTSIDE RECORDS SUMMARY | 2025-01-11 10:16 | XMS_ITS | Clinical Summary ---
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 Gender Identity Not on file Sexual Orientation Not on file Obstetrics History Last Filed Vital Signs Vital Sign Reading Time Taken Comments Blood Pressure 146/72 10/01/2022 3:15 PM DRILLING FIELD OPERATOR Pulse 77 10/01/2022 3:15 PM DRILLING FIELD OPERATOR Temperature 36.3 C (97.3 F) 10/01/2022 2:45 PM DRILLING FIELD OPERATOR Respiratory Rate 12 10/01/2022 3:15 PM DRILLING FIELD OPERATOR Oxygen Saturation 95% 10/01/2022 3:15 PM DRILLING FIELD OPERATOR Inhaled Oxygen Concentration - - Weight 140 kg (308 lb 10.3 oz) 10/01/2022 12:00 PM DRILLING FIELD OPERATOR Height 175.3 cm (5' 9 ) 10/01/2022 12:00 PM DRILLING FIELD OPERATOR Body Mass Index 45.58 10/01/2022 12:00 PM DRILLING FIELD OPERATOR Plan of Treatment Health Maintenance Due Date Last Done Comments Colon Cancer Screening-Colonoscopy 1960 Depression Screening 1959 Hepatitis C Screening 1959 Prostate Cancer Screening-PSA 1959 Hepatitis B Screening 12/30/1977 Pneumococcal vaccine 65+ (1 of 2 - PCV) 12/30/1978 Zoster Vaccine (1 of 2) 12/30/2009 Fall Risk Assessment 10/01/2023 10/01/2022 Covid-19 Vaccine ( season) 2024 09/29/2021, 02/24/2021, 02/03/2021 Influenza Vaccine (#1) 2024 Abdominal Aortic Aneurysm (A AA) Screen 12/30/2024 Well Visit 65+ 12/30/2024 DTaP/Tdap/Td Vaccine (3 - Td or Tdap) 08/23/2028 08/23/2018, 05/12/2010, 11/05/1995 Medical Devices Implanted Type Area Accounts Executive Device Identifier Shelf Expiration Date Model / Serial / Lot [employer] Lesli Contour Vl 6fr 22-30cm Large Inner Lumen Low Profile Bladder Maged Latex Free [id number] - Snone - [id number] Implanted:Qty: 1 on 10/01/2022 by Anuel Hall MD at [facility] Stent Left: Ureter [employer] Lesli 07/06/2025 [id number] / NONE / [id number] Insurance [facility] Care Teams Human Resources Services Specialist Relationship Specialty Start Date End Date Marielos Carver MD PCP - General Family Medicine 09/16/22 Anuel Hall MD [address] [facility] [address] [place] [address] Consulting Physician Urology 10/01/22
== END 2025-01-11 09:46 | disposition home or self-care (01) ==
PROVIDERS: PCP Family Medicine; Visit Provider Urology
DX: N20.1 Calculus of ureter (principal)
CPT/HCPCS: 74018; 74176

== ENCOUNTER 2025-03-13 00:19 | Day surgery (SDC) | payer MEDICARE, SELFPAY ==
[2025-03-02 14:38] VITALS: BMI 44.4
--- OUTSIDE RECORDS SUMMARY | 2025-03-13 00:22 | XMS_ITS | Continuity of Care Document ---
Author Organization [facility] Address [address] [place] [address] [address] [facility] [address] [place] [address] Phone Care Team Providers Care Kayaking Instructor Name Role Phone Kerr OD, Maged Unavailable Unavailable Advance Directives Directive Yes / No Effective Date File Name No Information Encounters Encounter Description Practice Location Reason(s) For Visit Diagnoses Date Provider Providers Copied on Encounter [facility], [address] [place] [address] [address], [place], [place], [id number], [place] tel:[phone] [facility] No Information 4-200 5 Kerr OD Maged. [address], [place], [address], [place]. tel:[phone] Family History Family Member Type Diagnosis Age At Onset No Information Payers Payer name Insurance type Covered libertarian ID Authoriza tion(s) [employer] ALBIN LEE [id number] Social History Type Description Quantity Date Captured [...]
--- OUTSIDE RECORDS SUMMARY | 2025-03-13 00:22 | XMS_ITS | Clinical Summary ---
Author Organization [facility] Address [address], [facility] [address] [place] [address] Phone Care Team Providers Care Devil Tender Name Role Phone Rosie Renner MD Primary Care Provi vero Rosie Renner MD Unavailable [phone] Social History Tobacco Use Types Packs/Day Years [...] Influenza Immunization (#1) 2024 SARS-COV-2 Immunization ( season) 2024 Respiratory Syncytial Virus (RSV) Immunization [...] Most Recently Relevant to Health Maintenance Insurance [facility] Care Teams Devil Tender Relationship Specialty Start Date End Date Rosie Renner MD [address] [place] [address] PCP - General Family Medicine 12/08/18 Rosie Renner MD [address] [place] [address] Family Medicine 12/08/18
--- OUTSIDE RECORDS SUMMARY | 2025-03-13 00:22 | XMS_ITS | Clinical Summary ---
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 Gender Identity Not on file Sexual Orientation Not on file Obstetrics History Last Filed Vital Signs Vital Sign Reading Time Taken Comments Blood Pressure 146/72 10/01/2022 3:15 PM STRINGING MACHINE TENDER Pulse 77 10/01/2022 3:15 PM STRINGING MACHINE TENDER Temperature 36.3 C (97.3 F) 10/01/2022 2:45 PM STRINGING MACHINE TENDER Respiratory Rate 12 10/01/2022 3:15 PM STRINGING MACHINE TENDER Oxygen Saturation 95% 10/01/2022 3:15 PM STRINGING MACHINE TENDER Inhaled Oxygen Concentration - - Weight 140 kg (308 lb 10.3 oz) 10/01/2022 12:00 PM STRINGING MACHINE TENDER Height 175.3 cm (5' 9 ) 10/01/2022 12:00 PM STRINGING MACHINE TENDER Body Mass Index 45.58 10/01/2022 12:00 PM STRINGING MACHINE TENDER Plan of Treatment Health Maintenance Due [...] 05/12/2010, 11/05/1995 Medical Devices Implanted Type Area Home Health Billing Specialist Device Identifier Shelf Expiration Date Model / Serial / Lot [employer] Lesli Contour Vl 6fr 22-30cm Large Inner Lumen Low Profile Bladder Maged Latex Free [id number] - Snone - [id number] Implanted:Qty: 1 on 10/01/2022 by Anuel Hall MD at [facility] Stent Left: Ureter [employer] Lesli 07/06/2025 [id number] / NONE / [id number] Insurance [facility] Care Teams Channel Machine Operator Relationship Specialty Start Date End Date Marielos Carver MD PCP - General Family Medicine 09/16/22 Anuel Hall MD [address] [facility] [address] [place] [address] Consulting Physician Urology 10/01/22
--- OUTSIDE RECORDS SUMMARY | 2025-03-13 00:22 | XMS_ITS | Referral Summary ---
Author Organization 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 Gender Identity Not on file Sexual Orientation Not on file Last Filed Vital Signs Vital Sign Reading Time Taken Comments Blood Pressure 146/72 10/01/2022 3:15 PM SAS ETL DEVELOPER Pulse 77 10/01/2022 3:15 PM SAS ETL DEVELOPER Temperature 36.3 C (97.3 F) 10/01/2022 2:45 PM SAS ETL DEVELOPER Respiratory Rate 12 10/01/2022 3:15 PM SAS ETL DEVELOPER Oxygen Saturation 95% 10/01/2022 3:15 PM SAS ETL DEVELOPER Inhaled Oxygen Concentration - - Weight 140 kg (308 lb 10.3 oz) 10/01/2022 12:00 PM SAS ETL DEVELOPER Height 175.3 cm (5' 9 ) 10/01/2022 12:00 PM SAS ETL DEVELOPER Body Mass Index 45.58 10/01/2022 12:00 PM SAS ETL DEVELOPER Plan of Treatment Not on file Medical Devices Implanted Type Area Manager Garage Device Identifier Shelf Expiration Date Model / Serial / Lot [employer] Lesli Contour Vl 6fr 22-30cm Large Inner Lumen Low Profile Bladder Maged Latex Free [id number] - Snone - [id number] Implanted:Qty: 1 on 10/01/2022 by Anuel Hall MD at [facility] Stent Left: Ureter [employer] Lesli 07/06/2025 [id number] / NONE / [id number] Insurance [facility] Care Teams Parts Sales Manager Relationship Specialty Start Date End Date Marielos Carver MD PCP - General Family Medicine 09/16/22 Anuel Hall MD [address] [facility] [address] [place] [address] Consulting Physician Urology 10/01/22
[2025-03-13 07:13] VITALS: BP 140/70; PULSE 80; RESP 18; TEMP 36.2; O2SAT 97; BMI 44.6
--- NOTE | 2025-03-13 07:15 | P.PNAN_ITS ---
Anes - Initial Pre Proc Eval Procedure: Operation Date: 03/13/25 08:30 Proposed Procedures p Colonoscopy - Sukhwinder Decker MD Date/Time: 03/13/25 07:15 Surgeon: Sukhwinder Decker MD Pre Op Diagnosis: hx of colon polyps, family hx of colon polyps Patient Data Age: 64 Gender: M Height: 1.75 m Weight: 136.5 kg Allergies Allergy/AdvReac Type Severity Reaction Status Date / Time No Known Allergies Allergy Verified 03/13/25 07:12 Home Medications Medication Instructions Recorded Confirmed Type tamsulosin 0.4 mg capsule (Flomax) 0.4 mg PO HS 07/02/22 03/13/25 History finasteride 5 mg tablet 5 mg PO DAILY #1 tablet 11/01/24 03/13/25 Rx acetaminophen 500 mg tablet 1,000 mg (2 x 500 mg) PO TID PRN 12/09/24 03/02/25 Rx michael 7 days #42 tabs ondansetron 4 mg disintegrating 4 mg PO Q8H PRN nausea and 12/09/24 03/02/25 Rx tablet vomiting #30 tabs oxycodone 5 mg tablet 5 mg PO Q4H PRN pain #14 tabs 12/09/24 03/02/25 Rx Patient hx anesthesia problems: none Family hx anesthesia problems: none Results Review: All pre-operative results and documents have been reviewed as part of the pre- operative evaluation. [facility] Past Medical History Medical History Current tobacco use Morbid obesity Arthritis Low testosterone level in male Osteoarthritis of right knee Surgical History Surgical History History of ankle surgery left, 1997 H/O arthroscopy of right knee Dr. Baca 2010 Family History Family History Mother Depression Heart disease Hypertension Parkinson disease Father Skin cancer Alzheimer's dementia Sibling Heart disease Hypertension Father Family history of dementia Mother Family history of coronary artery disease Social History Social History Smoking packs per day: 1 Smoking cigarettes per day: 20.0 Years smoked: 40 Smoking pack-years: 40.00 Smoking status: Current every day smoker Tobacco type: cigarettes (4-6 cigarettes per day. has smoked for 40 years. 30 years at 1 ppd) Second hand tobacco smoke exposure: Yes Additional smoking assessment comments: reports that he has decreased his tobacco use Alcohol intake: current Drinks per week: 2 Alcohol use details: seldom; socially Substance use: current Substance use type: marijuana Other substance usage details: RECEARATIONAL 1-2X MONTH Last use: END May Living arrangements: with family Occupation/Education: retired Gender identity (if verbalized by the patient): Male Spiritual care concerns: No Anes - Eval Final PreProcedure Day of Procedure 03/13/25 07:15 Patient weight: morbidly obese Heart: regular rate and rhythm Lungs: clear to auscultation Airway: Mallampati scale class II Neurological: alert and oriented Last oral intake: >/= 8 hours ASA classification: III Emergent: no Anesthetic plan: proceed Anesthesia type and monitoring: general GIVS and standard monitoring Results Review: All pre-operative results and documents have been reviewed as part of the pre- operative evaluation. Informed Consent: The patient's anesthetic plan and its attendant risks and benefits were discussed with the patient/family/POA. Questions were solicited and answers provided to the satisfaction of the patient/family/POA.
[2025-03-13] MEDS: LACTATED RINGERS 1,000 ML 150 ML IV CONT (07:25)
--- NOTE | 2025-03-13 08:15 | PM.IMHP ---
H&P: HPI History of Present Illness Date/Time: 03/13/25 08:15 Chief Complaint: History of colon polyps Narrative: The patient has a history of colonic polyps, the last colonoscopy was in 2021. Review of Systems Review of Systems: All systems reviewed & are unremarkable except as noted in HPI and below PMFSH Past Medical History Medical History Current tobacco use Morbid obesity Arthritis Low testosterone level in male Osteoarthritis of right knee Surgical History Surgical History History of ankle surgery left, 1997 H/O arthroscopy of right knee Dr. Baca 2010 Family History Family History Mother Depression Heart disease Hypertension Parkinson disease Father Skin cancer Alzheimer's dementia Sibling Heart disease Hypertension Father Family history of dementia Mother Family history of coronary artery disease Social History Social History Smoking packs per day: 1 Smoking cigarettes per day: 20.0 Years smoked: 40 Smoking pack-years: 40.00 Smoking status: Current every day smoker Tobacco type: cigarettes (4-6 cigarettes per day. has smoked for 40 years. 30 years at 1 ppd) Second hand tobacco smoke exposure: Yes Additional smoking assessment comments: reports that he has decreased his tobacco use Alcohol intake: current Drinks per week: 2 Alcohol use details: seldom; socially Substance use: current Substance use type: marijuana Other substance usage details: RECEARATIONAL 1-2X MONTH Last use: END May Living arrangements: with family Occupation/Education: retired Gender identity (if verbalized by the patient): Male Spiritual care concerns: No Meds Home Medications and Allergies Home Medications Medication Instructions Recorded Confirmed Type tamsulosin 0.4 mg capsule (Flomax) 0.4 mg PO HS 07/02/22 03/13/25 History finasteride 5 mg tablet 5 mg PO DAILY #1 tablet 11/01/24 03/13/25 Rx acetaminophen 500 mg tablet 1,000 mg (2 x 500 mg) PO TID PRN 12/09/24 03/02/25 Rx michael 7 days #42 tabs ondansetron 4 mg disintegrating 4 mg PO Q8H PRN nausea and 12/09/24 03/02/25 Rx tablet vomiting #30 tabs oxycodone 5 mg tablet 5 mg PO Q4H PRN pain #14 tabs 12/09/24 03/02/25 Rx Allergies Allergy/AdvReac Type Severity Reaction Status Date / Time No Known Allergies Allergy Verified 03/13/25 07:12 Vital Signs Vital Signs - 24 hr 03/13/25 07:13 Temperature 97.2 F L Pulse Rate 80 Respiratory Rate 18 Blood Pressure 140/70 Pulse Oximetry 97 Oxygen Delivery Room Air Exam Const: General: cooperative and healthy appearing Resp: Effort & Inspection: normal respiratory effort and able to speak in complete sentences Auscultation: clear to auscultation bilaterally Cardio: Rate: regular rate Rhythm: regular rhythm GI: Inspection: normal to inspection GI Palp: No No hepatosplenomegaly present Auscultation: normal bowel sounds Rectal Exam: deferred Skin: General skin exam: normal color Psych: Appearance: grossly normal Mental Status: mental status grossly normal Assessment and Plan Assessment and plan (1) History of colon polyps: Code(s): Z86.010 - Personal history of colon polyps Status: Acute Assessment and Plan: The patient is deemed a good candidate for the procedure. Consent signed. Will proceed.
[2025-03-13] MEDS: SIMETHICONE ORAL SUSPENSION 20 MG/0.3 ML 30 ML BOTTLE 0.6 ML IRRIGATION (08:30)
[2025-03-13 08:45] VITALS: BP 138/76; PULSE 75; RESP 18; O2SAT 98
--- NOTE | 2025-03-13 08:49 | P.HP_ITS ---
<Statement entered by Sukhwinder Decker MD - 03/13/25 13:55> See previous report H&P: HPI History of Present Illness Date/Time: 03/13/25 08:49 Chief Complaint: see previous report PMFSH Past Medical History Medical History Current tobacco use Morbid obesity Arthritis Low testosterone level in male Osteoarthritis of right knee Surgical History Surgical History History of ankle surgery left, 1997 H/O arthroscopy of right knee Dr. Baca 2010 Family History Family History Mother Depression Heart disease Hypertension Parkinson disease Father Skin cancer Alzheimer's dementia Sibling Heart disease Hypertension Father Family history of dementia Mother Family history of coronary artery disease Social History Social History Smoking packs per day: 1 Smoking cigarettes per day: 20.0 Years smoked: 40 Smoking pack-years: 40.00 Smoking status: Current every day smoker Tobacco type: cigarettes (4-6 cigarettes per day. has smoked for 40 years. 30 years at 1 ppd) Second hand tobacco smoke exposure: Yes Additional smoking assessment comments: reports that he has decreased his tobacco use Alcohol intake: current Drinks per week: 2 Alcohol use details: seldom; socially Substance use: current Substance use type: marijuana Other substance usage details: RECEARATIONAL 1-2X MONTH Last use: END May Living arrangements: with family Occupation/Education: retired Gender identity (if verbalized by the patient): Male Spiritual care concerns: No Meds Home Medications and Allergies Home Medications Medication Instructions Recorded Confirmed Type tamsulosin 0.4 mg capsule (Flomax) 0.4 mg PO HS 07/02/22 03/13/25 History finasteride 5 mg tablet 5 mg PO DAILY #1 tablet 11/01/24 03/13/25 Rx acetaminophen 500 mg tablet 1,000 mg (2 x 500 mg) PO TID PRN 12/09/24 03/02/25 Rx michael 7 days #42 tabs ondansetron 4 mg disintegrating 4 mg PO Q8H PRN nausea and 12/09/24 03/02/25 Rx tablet vomiting #30 tabs oxycodone 5 mg tablet 5 mg PO Q4H PRN pain #14 tabs 12/09/24 03/02/25 Rx Allergies Allergy/AdvReac Type Severity Reaction Status Date / Time No Known Allergies Allergy Verified 03/13/25 07:12 Vital Signs Vital Signs - 24 hr 03/13/25 07:13 Temperature 97.2 F L Pulse Rate 80 Respiratory Rate 18 Blood Pressure 140/70 Pulse Oximetry 97 Oxygen Delivery Room Air
[2025-03-13 08:55] VITALS: BP 137/82; PULSE 65; RESP 18; O2SAT 99
[2025-03-13 09:05] VITALS: BP 141/79; PULSE 69; RESP 18; O2SAT 99
== END 2025-03-13 09:10 | disposition home or self-care (01) ==
PROVIDERS: PCP Family Medicine; Referring Provider Student in an Organized Health Care Education/Training Program; Visit Provider Internal Medicine Gastroenterology
PROC: 0DJD8ZZ Inspection of Lower Intestinal Tract, Via Natural or Artificial Opening Endoscopic (ICD-10-PCS; CPT 45378; principal; 2025-03-13 08:30)
DX: Z12.11 Encounter for screening for malignant neoplasm of colon (principal); D12.2 Benign neoplasm of ascending colon; K64.8 Other hemorrhoids; F17.210 Nicotine dependence, cigarettes, uncomplicated; F12.90 Cannabis use, unspecified, uncomplicated
CPT/HCPCS: 45385; 88305; J2003; J2704; J7120